=== PATIENT | male | born 1965 | race Caucasian/White ===

== ENCOUNTER 2024-06-20 16:40 | Observation (INO) ==
--- NOTE | 2024-06-20 16:50 | Emergency Department Note ---
Impression & Plan Syncope and collapse, Non-ST elevation IA (NSTEMI) ED Provider Note HISTORY OF PRESENT ILLNESS: Patient is a 58-year-old male presenting after recurrent syncopal episodes. Patient was at the [employer] [place] game when he reportedly passed out. Bystanders called 911. Patient reports he was feeling lightheaded prior to passing out. He states that he came to and he was surrounded by paramedics. The paramedics got him into the ambulance and states that he then had a another episode of passing out. Patient denies striking her head. He does have a history of cardiac stents and had a stent placed 1 month ago. He is on aspirin and Brilinta. He denies any nausea or vomiting. He denies any headache or changes in vision. On arrival to the ER, he reports feeling slightly anxious and having some substernal chest pressure. He states he did not even want to come but he decided to get checked out. He denies any DVT or PE history. ROS: as above PHYSICAL EXAM: Constitutional: Patient appears in no acute distress. HENT: Head: Normocephalic and atraumatic. Eyes: EOMI, PERRL Mouth/Throat: Mucous membranes moist. Neck: Trachea midline. Neck supple. Cardiovascular: RRR, No murmurs, rubs or gallops. Intact distal pulses. Pulmonary/Chest: No respiratory distress. Breath sounds clear and equal bilaterally. No wheezes or rales. Abdominal: Abdomen soft, no tenderness, rebound or guarding. Musculoskeletal: No edema, tenderness or deformity noted. Skin: Warm and dry. Abrasion to right knee. Psychiatric: Appropriate mood and affect for situation. Neurological: Alert and keenly responsive. CN II-XII grossly intact, moving all extremities equally and fully. MDM: - Vitals signs showed hypotension and tachycardia - History obtained via patient. History as above. - Chronic conditions affecting care: CAD (S/p PCI); HTN; HLD - Differential diagnoses include, but are not limited to: Acute coronary syndrome; pulmonary embolism; dissection; tension pneumothorax; esophageal rupture; pneumonia - Order placed for continuous cardiac monitoring. At this time, monitor showed rate of 81 bpm with normal sinus rhythm, per my interpretation. - External medical records reviewed. - EKG interpreted by myself showed normal sinus rhythm. Rate 92 bpm. QT 390. No acute ischemic changes. Noted to have an incomplete right bundle branch block. - Laboratory workup interpreted by myself showed normal WBC; normal PT/INR; stable electrolytes; elevated troponin (109.7); slightly elevated alcohol (50.7); normal TSH; elevated BNP (118) - CT head wo contrast today for acute intracranial pathology. - Patient had an episode of vomiting and bowel incontinence at CT scan. - CT chest with IV contrast showed moderate circumferential wall thickening of the mid to distal esophagus with trace mediastinal fluid favoring esophagitis. - CT abdomen/pelvis with IV contrast showed fluid-filled distended stomach. Noted to have diffuse small bowel wall thickening suggestive of nonspecific enteritis. - Repeat troponin elevated, but slightly trended down at 90.9. - Patient took 81 mg ASA today. Given 243 mg PO aspirin in ER. - Given 4 mg IV zofran for nausea. - Discussion was had with senior case manager about patient's case and need for admission - Hospitalist, Dr. Bryant, consulted for admission - Patient admitted to [facility] for further evaluation and management. ASSESSMENT AND PLAN: Diagnosis: Syncope and collapse; NSTEMI Plan: Admit Past Med/Surg History Problem List (Updated 06/20/24 @ 20:26 by Reva Zepeda MD) Non-ST elevation IA (NSTEMI) (Acute) Syncope and collapse (Acute) Social History Smoking Status: Never smoker Feels Safe at Home: Yes Home Meds Home Medications Medication Instructions Recorded Confirmed albuterol sulfate 90 mcg/actuation 2 inh inhalation Q4H PRN SOB 06/20/24 06/20/24 aerosol inhaler aspirin 81 mg tablet,delayed 81 mg PO DAILY 06/20/24 06/20/24 release febuxostat 80 mg tablet 80 mg PO DAILY 06/20/24 06/20/24 furosemide 20 mg tablet 20 mg PO DAILY 06/20/24 06/20/24 insulin aspart U-100 100 unit/mL 0 sliding scale dose subcut 06/20/24 06/20/24 (3 mL) subcutaneous pen (Novolog DIRECTED FlexPen U-100 Insulin aspart) insulin glargine 100 unit/mL (3 45 unit subcut DAILY 06/20/24 06/20/24 mL) subcutaneous pen (Lantus Solostar U-100 Insulin) losartan 25 mg tablet 25 mg PO DAILY 06/20/24 06/20/24 metformin 500 mg tablet 500 mg PO BID 06/20/24 06/20/24 metoprolol succinate 25 mg 25 mg PO DAILY 06/20/24 06/20/24 tablet,extended release 24 hr rosuvastatin 40 mg tablet 40 mg DAILY 06/20/24 06/20/24 ticagrelor 90 mg tablet (Brilinta) 90 mg PO Q12H 06/20/24 06/20/24 Results & Data (ED) Vital Signs Vital Signs - 24 hr 06/20/24 16:36 06/20/24 16:51 06/20/24 16:51 Temperature 37.4 C Temperature Source Oral Pulse Rate 92 H 89 Pulse Rate [Right Finger] 89 Pulse Rhythm Regular Pulse Rhythm [Right Finger] Regular Pulse Strength [Right Finger] Normal Respiratory Rate 20 18 16 Respiratory Effort / Characteristics Non-Labored Respiratory Depth Normal Respiratory Pattern Regular Blood Pressure 120/61 Blood Pressure [Right Arm] 120/61 Blood Pressure Mean 80 Blood Pressure Mean [Right Arm] 80 Blood Pressure Position [Right Arm] Lying Pulse Oximetry 98 99 99 Oxygen Delivery Method Room Air Room Air Sepsis Recent Fever Within 48 Hours No Sepsis New/Unexplained Change in Mental Status No Sepsis Action Taken by Nursing No Action Required 06/20/24 17:09 06/20/24 18:01 06/20/24 19:33 Temperature Temperature Source Pulse Rate 88 Pulse Rate [Right Finger] 77 81 Pulse Rhythm Pulse Rhythm [Right Finger] Regular Regular Pulse Strength [Right Finger] Normal Normal Respiratory Rate 17 Respiratory Effort / Characteristics Non-Labored Respiratory Depth Normal Respiratory Pattern Blood Pressure Blood Pressure [Right Arm] 97/60 L 116/77 Blood Pressure Mean Blood Pressure Mean [Right Arm] 72 90 Blood Pressure Position [Right Arm] Lying Lying Pulse Oximetry 100 99 Oxygen Delivery Method Room Air Room Air Sepsis Recent Fever Within 48 Hours Sepsis New/Unexplained Change in Mental Status Sepsis Action Taken by Nursing Laboratory Data 06/20/24 16:55 06/20/24 16:55 Lab Results 06/20/24 06/20/24 06/20/24 Range/Units 16:55 18:35 18:41 WBC 8.64 (4.8-10.8) K/ul RBC 4.01 L (4.70-6.10) M/uL Hgb 12.3 L (14.0-18.0) g/dl Hct 36.7 L (42.0-52.0) % MCV 91.5 (80.0-100.0) fL MCH 30.7 (25.0-34.0) pg MCHC 33.5 (32.0-36.0) g/dL RDW Std Deviation 40.9 (36.4-46.3) fL RDW Coeff of Jodie 12.3 (11.5-14.5) % Plt Count 375 (130-400) K/uL MPV 9.2 L (9.4-12.4) fL Immature Gran % (Auto) 0.3 % Neut % (Auto) 43.3 % Lymph % (Auto) 49.7 % Cherry % (Auto) 5.4 % Eos % (Auto) 1.0 % Baso % (Auto) 0.3 % Neut # (Auto) 3.73 (1.40-6.50) K/uL Lymph # (Auto) 4.29 H (1.20-3.40) K/uL Cherry # (Auto) 0.47 (0.11-0.59) K/uL Eos # (Auto) 0.09 (0.00-0.50) K/uL Baso # (Auto) 0.03 (0.00-0.20) K/uL Immature Gran # (Auto) 0.03 (0.01-0.20) K/uL PT 10.9 (9.0-12.0) Seconds INR 1.0 (0.9-1.1) Sodium 138 (136-145) mmol/L Potassium 3.6 (3.5-5.1) mmol/L Chloride 105 (98-107) mmol/L Carbon Dioxide 23 (21-32) mmol/L Anion Gap 10 (3-11) BUN 22 (6-23) mg/dl Creatinine 0.90 (0.6-1.4) mg/dl Est Cr Clr Drug Dosing 103.5 ml/min eGFR 100.24 BUN/Creatinine Ratio 24.4 H (10-20) Glucose 115 H (70-99(Fasting)) mg/dl Calcium 9.0 (8.6-10.3) mg/dl Magnesium 1.9 (1.7-2.4) mg/dl Total Bilirubin 0.8 (0.2-1.0) mg/dl AST 16 (13-39) U/L ALT 16 (7-52) U/L Alkaline Phosphatase 78 (34-104) U/L Total Creatine Kinase 77 (30-223) U/L Troponin I High Sens 109.7 H* 90.9 H* D (0-20) pg/ml B-Natriuretic Peptide 118 H (0-100) pg/ml Total Protein 6.9 (6.0-8.3) gm/dl Albumin 4.2 (3.4-5.0) gm/dl Globulin 2.7 (2.5-4.0) gm/dl Albumin/Globulin Ratio 1.6 (0.9-2) Lipase 22 (11-82) U/L TSH 3.323 (0.300-4.500) uIu/ml Ethyl Alcohol mg/dL 50.7 H (<10.0) mg/dl Administered Medications Potassium Chloride/Sodium Chloride (Normal Saline W/20 Meq Kcl) 20 meq in 1,000 mls @ 75 mls/hr IV .[id number] ONE Stop: 06/21/24 09:29 Last Admin: 06/20/24 20:22 Dose: 75 mls/hr Documented By: TRAY Discontinued Medications Aspirin (Aspirin Chew 324 Mg) 243 mg PO NOW STA Stop: 06/20/24 18:23 Last Admin: 06/20/24 18:33 Dose: 243 mg Documented By: TRAY Sodium Chloride (Nss) 1,000 mls @ 999 mls/hr IV .Q1H1M ONE Stop: 06/20/24 19:23 Last Infusion: 06/20/24 20:23 Dose: Infused Documented By: Admin: 06/20/24 18:35 Dose: 999 mls/hr Documented By: TRAY Ioversol (Optiray 320 100ml) 93 ml IV ONCE ONE Stop: 06/20/24 17:30 Last Admin: 06/20/24 17:30 Dose: 93 ml Documented By: MARLON Ondansetron HCl (Ondansetron Inj 2 Mg/Ml 2 Ml Vial) 4 mg IV NOW STA Stop: 06/20/24 18:24 Last Admin: 06/20/24 18:33 Dose: 4 mg Documented By: TRAY Imaging Data Radiologist's Impression: Head CT 06/20/24 16:47 CT OF THE HEAD WITHOUT CONTRAST CLINICAL HISTORY: Syncope. COMPARISON STUDY: No previous studies for comparison. TECHNIQUE: Helical axial images of the head were obtained without IV contrast. Automated exposure control was utilized for the study. A dose lowering technique was utilized adhering to the principles of ALARA. FINDINGS: No acute intracranial hemorrhage, midline shift or mass effect is present. The ventricular system is unremarkable. The basal cisterns are patent. No extra-axial collections are present. There are no findings to suggest acute dural sinus thrombosis or acute territorial infarct. No significant calvarial abnormalities are present. Visualized portions of the sinuses and mastoid air cells are clear. IMPRESSION: 1. No acute intracranial findings. 2. No calvarial fractures. ACT 112: Negative or not required by law. Electronically signed by: Chaz Ragland M.D. 06/20/2024 5:37 PM Abdomen/Pelvis CT 06/20/24 17:20 CT OF THE ABDOMEN AND PELVIS WITH CONTRAST CLINICAL HISTORY: Syncopal episode. Vomiting. COMPARISON STUDY: None. TECHNIQUE: Following IV administration of 93 mL of Optiray, axial images of the abdomen and pelvis were obtained from the lung bases to the proximal femurs. Images were reviewed in the axial, sagittal, and coronal planes. IV contrast was administered without complication. Automated exposure control was utilized for the study. A dose lowering technique was utilized adhering to the principles of ALARA. CT DOSE: 3702.26 mGy.cm FINDINGS: No pneumatosis, free air or portal venous gas is present. There is moderate circumferential wall thickening of the distal esophagus. The stomach is moderately distended and fluid-filled. Hypodense hepatic lesions represent cysts. There is no biliary or pancreatic ductal dilatation. Subtle hypodensity surrounding the pancreas is noted. This is also adjacent to the proximal duodenum and the superior mesenteric vein. The vessels are patent. No peripancreatic fluid collection is present. Superior mesenteric artery is unremarkable. Water attenuation bilateral renal lesions represent cysts. There is no hydronephrosis. There is no evidence for a bowel obstruction. The appendix is normal. There is mild wall thickening with subtle stranding/interloop fluid adjacent to the majority of the small bowel. There is trace ascites within the pelvis. No colonic wall thickening is present. There is no lymphadenopathy. Bladder wall thickening is accentuated by underdistention. No acute fractures within the lumbar spine, pelvis or hips are identified. IMPRESSION: 1. Normal appendix. No evidence for a bowel obstruction. 2. Fluid-filled distended stomach. This may simply represent gastroenteritis. However, gastric outlet obstruction/duodenal obstruction could have a similar imaging appearance. If persistent symptoms, GI consultation is recommended. 3. Subtle peripancreatic stranding/soft tissue which extends along the proximal duodenum and superior mesenteric vein. Although the appearance is not typical, acute pancreatitis cannot be excluded. Autoimmune pancreatitis is also within the differential. A follow-up CT in one month to ensure resolution and exclude the much less likely possibility of a neoplastic etiology is recommended. 4. Diffuse small bowel wall thickening with minimal adjacent stranding and fluid. This suggests a nonspecific enteritis which should be assessed on follow- up CT. 5. Circumferential distal esophageal wall thickening which may reflect esophagitis. ACT 112: Positive. There are findings on this exam that require communication between the performing entity and the patient following Patient Test Result Information Act ([place] Act 112) guidelines. Electronically signed by: Chaz Ragland M.D. 06/20/2024 6:[address] 06/20/24 17:20 CT OF THE CHEST WITH IV CONTRAST CLINICAL HISTORY: Syncope. COMPARISON STUDY: No previous studies for comparison. TECHNIQUE: Following IV administration of 93 mL of Optiray, helical axial images of the chest were obtained. Sagittal and coronal reconstructions were viewed as well as maximal intensity projections on an independent 3-D workstation. Automated exposure control was utilized for the study. A dose lowering technique was utilized adhering to the principles of ALARA. FINDINGS: No enlarged axillary, mediastinal or hilar lymph nodes are present. Size of the heart is at the upper limits of normal. There is moderate circumferential wall thickening of the mid to distal esophagus. There may be trace mediastinal fluid. There is no pneumomediastinum. No pneumothorax or pleural effusion is present. Multiple small calcified pulmonary nodules are benign. There are no suspicious pulmonary nodules. No consolidation is identified to suggest pneumonia. The stomach is distended and fluid-filled. There is a gallstone within the gallbladder. These findings are better depicted on the CT of the abdomen and pelvis which will be reported separately. No fractures within the bony thorax are identified. IMPRESSION: 1. No acute traumatic findings within the chest. 2. Moderate circumferential wall thickening of the mid to distal esophagus with trace mediastinal fluid. This is nonspecific but favors esophagitis. Distended, fluid-filled stomach better depicted on the CT of the abdomen and pelvis which will be reported separately. ACT 112: Negative or not required by law. Electronically signed by: Chaz Ragland M.D. 06/20/2024 5:46 PM Discharge Plan Visit Data Chief Complaint: Syncope Stated Complaint: SYNCOPE ED Provider: Reva Zepeda Discharge Problem: Syncope and collapse, Non-ST elevation IA (NSTEMI) Forms Stand Alone Forms: My [facility] Prescriptions Prescriptions: No Action metformin 500 mg tablet 500 mg PO BID aspirin 81 mg tablet,delayed release (DR/EC) 81 mg PO DAILY losartan 25 mg tablet 25 mg PO DAILY furosemide 20 mg tablet 20 mg PO DAILY metoprolol succinate 25 mg tablet extended release 24 hr 25 mg PO DAILY albuterol sulfate 90 mcg/actuation HFA aerosol inhaler 2 inh INHALATION Q4H PRN (Reason: SOB) insulin aspart U-100 [Novolog FlexPen U-100 Insulin] 100 unit/mL (3 mL) insulin pen 0 sliding scale dose SUBCUT DIRECTED Rx Instructions: INJECT 1-8 UNITS 3 TIMES A DAY BEFORE MEALS. INJECT EXTRA DOSE BASED ON RESULTS PER SCALE PROVIDED. rosuvastatin 40 mg tablet 40 mg DAILY insulin glargine [Lantus Solostar U-100 Insulin] 100 unit/mL (3 mL) insulin pen 45 unit SUBCUT DAILY febuxostat 80 mg tablet 80 mg PO DAILY Brilinta 90 mg tablet 90 mg PO Q12H Referrals Referrals: PCP,NO [Primary Care Provider] -
[2024-06-20 17:08] VITALS: TEMP 99.3
[2024-06-20 17:15] LABS: Basophils # (auto) 0.03 K/uL (0.00-0.20); Basophils % (auto) 0.3 %; Eosinophils # (auto) 0.09 K/uL (0.00-0.50); Hematocrit (blood only) 36.7 % (42.0-52.0); Hemoglobin 12.3 g/dl (14.0-18.0); Immature Granulocytes # (auto) 0.03 K/uL (0.01-0.20); Immature Granulocytes % (auto) 0.3 %; Lymphocytes # (auto) 4.29 K/uL (1.20-3.40); Lymphocytes % (auto) 49.7 %; Mean Corpuscular Hemoglobin 30.7 pg (25.0-34.0); Mean Corpuscular Hgb Conc 33.5 g/dL (32.0-36.0); Mean Corpuscular Volume 91.5 fL (80.0-100.0); Mean Platelet Volume 9.2 fL (9.4-12.4); Monocytes # (auto) 0.47 K/uL (0.11-0.59); Monocytes % (auto) 5.4 %; Neutrophils # (auto) 3.73 K/uL (1.40-6.50); Neutrophils % (auto) 43.3 %; Platelet Count 375 K/uL (130-400); RDW Coefficient of Variation 12.3 % (11.5-14.5); RDW Standard Deviation 40.9 fL (36.4-46.3); Red Blood Count 4.01 M/uL (4.70-6.10); White Blood Count 8.64 K/ul (4.8-10.8)
[2024-06-20] MEDS: OPTIRAY 320 100ml IV ONE (17:30)
--- NOTE | 2024-06-20 17:40 | CT Scan Report ---
CT OF THE HEAD WITHOUT CONTRAST CLINICAL HISTORY: Syncope. COMPARISON STUDY: No previous studies for comparison. TECHNIQUE: Helical axial images of the head were obtained without IV contrast. Automated exposure con trol was utilized for the study. A dose lowering technique was utilized adhering to the principles o f ALARA. FINDINGS: No acute intracranial hemorrhage, midline shift or mass effect is present. The ventricular system is unremarkable. The basal cisterns are patent. No extra-axial collections are present. There are no findings to suggest acute dural sinus thrombosis or acute territorial infarct. No significant calvarial abnormalities are present. Visualized portions of the sinuses and mastoid air cells are bharat ar. IMPRESSION: 1. No acute intracranial findings. 2. No calvarial fractures. ACT 112: Negative or not required by law. Electronically signed by: Chaz Ragland M.D. 06/20/2024 5:37 PM
--- NOTE | 2024-06-20 17:49 | CT Scan Report ---
CT OF THE CHEST WITH IV CONTRAST CLINICAL HISTORY: Syncope. COMPARISON STUDY: No previous studies for comparison. TECHNIQUE: Following IV administration of 93 mL of Optiray, helical axial images of the chest were o btained. Sagittal and coronal reconstructions were viewed as well as maximal intensity projections o n an independent 3-D workstation. Automated exposure control was utilized for the study. A dose low ering technique was utilized adhering to the principles of ALARA. FINDINGS: No enlarged axillary, mediastinal or hilar lymph nodes are present. Size of the heart is a t the upper limits of normal. There is moderate circumferential wall thickening of the mid to distal esophagus. There may be trace mediastinal fluid. There is no pneumomediastinum. No pneumothorax or pl eural effusion is present. Multiple small calcified pulmonary nodules are benign. There are no suspic ious pulmonary nodules. No consolidation is identified to suggest pneumonia. The stomach is distended and fluid-filled. There is a gallstone within the gallbladder. These findings are better depicted on the CT of the abdomen and pelvis which will be reported separately. No fractures within the bony tho rax are identified. IMPRESSION: 1. No acute traumatic findings within the chest. 2. Moderate circumferential wall thickening of the mid to distal esophagus with trace mediastinal flu id. This is nonspecific but favors esophagitis. Distended, fluid-filled stomach better depicted on th e CT of the abdomen and pelvis which will be reported separately. ACT 112: Negative or not required by law. Electronically signed by: Chaz Ragland M.D. 06/20/2024 5:46 PM
[2024-06-20 17:51] LABS: Prothrombin Time 10.9 Seconds (9.0-12.0)
[2024-06-20 17:55] LABS: Albumin Level 4.2 gm/dl (3.4-5.0); Bilirubin,Total 0.8 mg/dl (0.2-1.0); Magnesium 1.9 mg/dl (1.7-2.4); Potassium 3.6 mmol/L (3.5-5.1)
[2024-06-20 18:01] LABS: Albumin Globulin Ratio 1.6 (0.9-2); BUN Creatinine Ratio 24.4 (10-20); Creatinine Clr Calc Pharmacy 103.5 ml/min; Globulin 2.7 gm/dl (2.5-4.0); Total Protein 6.9 gm/dl (6.0-8.3)
--- NOTE | 2024-06-20 18:12 | CT Scan Report ---
CT OF THE ABDOMEN AND PELVIS WITH CONTRAST CLINICAL HISTORY: Syncopal episode. Vomiting. COMPARISON STUDY: None. TECHNIQUE: Following IV administration of 93 mL of Optiray, axial images of the abdomen and pelvis we re obtained from the lung bases to the proximal femurs. Images were reviewed in the axial, sagittal, and coronal planes. IV contrast was administered without complication. Automated exposure control wa s utilized for the study. A dose lowering technique was utilized adhering to the principles of ALARA . CT DOSE: 3702.26 mGy.cm FINDINGS: No pneumatosis, free air or portal venous gas is present. There is moderate circumferential wall thickening of the distal esophagus. The stomach is moderately distended and fluid-filled. Hypod ense hepatic lesions represent cysts. There is no biliary or pancreatic ductal dilatation. Subtle hy podensity surrounding the pancreas is noted. This is also adjacent to the proximal duodenum and the s uperior mesenteric vein. The vessels are patent. No peripancreatic fluid collection is present. Super ior mesenteric artery is unremarkable. Water attenuation bilateral renal lesions represent cysts. The re is no hydronephrosis. There is no evidence for a bowel obstruction. The appendix is normal. There is mild wall thickening with subtle stranding/interloop fluid adjacent to the majority of the small b owel. There is trace ascites within the pelvis. No colonic wall thickening is present. There is no ly mphadenopathy. Bladder wall thickening is accentuated by underdistention. No acute fractures within t he lumbar spine, pelvis or hips are identified. IMPRESSION: 1. Normal appendix. No evidence for a bowel obstruction. 2. Fluid-filled distended stomach. This may simply represent gastroenteritis. However, gastric outlet obstruction/duodenal obstruction could have a similar imaging appearance. If persistent symptoms, GI consultation is recommended. 3. Subtle peripancreatic stranding/soft tissue which extends along the proximal duodenum and superior mesenteric vein. Although the appearance is not typical, acute pancreatitis cannot be excluded. Auto immune pancreatitis is also within the differential. A follow-up CT in one month to ensure resolution and exclude the much less likely possibility of a neoplastic etiology is recommended. 4. Diffuse small bowel wall thickening with minimal adjacent stranding and fluid. This suggests a non specific enteritis which should be assessed on follow-up CT. 5. Circumferential distal esophageal wall thickening which may reflect esophagitis. ACT 112: Positive. There are findings on this exam that require communication between the performing entity and the patient following Patient Test Result Information Act ([place] Act 112) guidelines. Electronically signed by: Chaz Ragland M.D. 06/20/2024 6:10 PM
[2024-06-20 18:16] LABS: Thyroid Stimulating Hormone 3.323 uIu/ml (0.300-4.500)
[2024-06-20 18:23] LABS: Troponin I High Sensitivity 109.7 pg/ml (0-20)
[2024-06-20] MEDS: ONDANSETRON INJ 2 MG/ML 2 ML VIAL IV STA (18:33)
[2024-06-20] MEDS: ASPIRIN CHEW 324 MG PO STA (18:33)
[2024-06-20] MEDS: SODIUM CHLORIDE 0.9% 1,000 ML IV ONE (18:35)
[2024-06-20 19:21] LABS: Troponin I High Sensitivity 90.9 pg/ml (0-20)
[2024-06-20] MEDS: NSS + 20MEQ KCL 20 MEQ/1,000 ML BAG IV ONE (20:22)
[2024-06-20 21:05] LABS: Appearance Urine Clear (Clear); Bilirubin Urine Negative (Negative); Blood Urine Negative (Negative); Color Urine Yellow; Glucose Urine UA Negative (Negative); Ketones Urine Negative (Negative); Leukocyte Esterase Urine Negative (Negative); Nitrite Urine Negative (Negative); Protein Urine Negative (Negative); Specific Gravity Urine 1.041 (1.000-1.030); Urobilinogen Urine Negative (Negative)
[2024-06-20 22:16] LABS: Hematocrit (blood only) 35.1 % (42.0-52.0); Hemoglobin 11.6 g/dl (14.0-18.0); Reticulocyte % 3.53 % (0.50-2.00); Reticulocytes # 0.14 10^6/uL (0.020-0.100)
[2024-06-20 22:29] LABS: Ferritin 165.6 ng/ml (8-388)
[2024-06-20 22:31] LABS: Folate (Folic Acid),Ser orPlas 18.15 ng/ml (>5.38)
[2024-06-20] MEDS ORDERED: GLUCOSE 10 TAB/TUBE PO PRN (23:28)
[2024-06-20] MEDS ORDERED: LORazepam 0.5 MG TAB PO PRN (23:28)
[2024-06-20] MEDS ORDERED: CARBOHYDRATES FOR HYPOGLYCEMIA PO PRN (23:28)
[2024-06-20] MEDS ORDERED: DEXTROSE 50% 50 ML SYRINGE IV PRN (23:28)
[2024-06-20] MEDS ORDERED: ACETAMINOPHEN 325 MG TAB PO PRN (23:28)
[2024-06-20] MEDS ORDERED: GLUCAGON FOR INJ 1 MG VIAL SQ PRN (23:28)
[2024-06-20] MEDS ORDERED: GLUCOSE 40% GEL 15 GM TUBE PO PRN (23:28)
[2024-06-20] MEDS ORDERED: oxyCODONE HCL IR 5 MG TAB (IMMEDIATE RELEASE) PO PRN (23:28)
[2024-06-20] MEDS ORDERED: PROMETHAZINE 6.25 MG/50.25 ML BAG IV PRN (23:28)
--- NOTE | 2024-06-20 23:54 | History & Physical Report ---
Date of Service June 20, 2024 Assessment & Plan (1) Syncope: Plan: Likely secondary to orthostasis given hypotension documented at the ER Rule out arrhythmia/obstructive cardiac pathology recent CAD status post recent stent (05/2024, [facility], [place], [place]; hx heart block as per patient account New onset anemia No previous diagnosis as per patient Bleeding right knee wound only source for now Patient denies overt GI or bleed complaints. hyperlipidemia, on statin Rx recent diagnosis DM2 insulin requiring, during last month's admission Incidental finding of subtle pancreatic abnormality on CT imaging, patient without abdominal complaints. OBS Medical telemetry IVF Hold losartan and home diuretic for now until BP stable TTE re: recurrent syncope Anemia workup, patient currently refusing to sign consent for prospective blood transfusion Hold dual antiplatelet Rx for now given bleeding right knee wound contributing to new onset anemia, important to resume once H&H stable given recent stent Basal bolus insulin, ISS BG goal 1 10-1 40, carb count coverage, update hemoglobin A1c Provide patient with CD of CT images on discharge, outpatient follow-up with GI specialist from [place], [place] regarding pancreatic abnormality on CT. DVT prophylaxis. SCDs RLE traumatic right knee wound Full code Text document was generated using [employer] voice recognition software. It may contain grammatical or spelling errors. Kindly contact undersigned for clarification of any documentation item in question. History of Present Illness Chief Complaint: Recurrent syncope Primary Care Provider: PCP: Dr. Parker Ramirez of [place], [place] Resident Inspector: Dr. Dayne Miller of [place], [place] History obtained from patient, family, and records. Medical history significant for CAD status post recent stent (05/2024, [facility], [place], [place]), transient heart block as per patient, hypertension, hyperlipidemia, recent diagnosis DM2 insulin requiring, gout. Patient is a resident of [place], [place] who is in town for the weekend football game. Recent confinement [place], [place] last month for NSTEMI. Patient presented with food poisoning symptoms after leaving [facility] to return home to [facility]. Had to stop at [facility] in [place], [place] due to illness. Abnormal heart enzyme, heart block found during admission although patient never had chest pain/SOB symptoms. Subsequent PCI and stent placement. Patient also newly diagnosed to be diabetic during confinement. Hemoglobin A1c was around 15 as per patient. Patient had 2 recurrent syncopal events at the [facility] today. Remembers feeling lightheaded prior to the events. Denies headache, chest pain, SOB, abdominal pain, black/bloody stools, hematuria. No witnessed seizures or incontinence. Denies previous episodes at home. Bleeding abrasion on right knee from fall. No unusual knee pain complaints. Lowest SBP of 90s documented at the ER. Medical History as above Surgical History : Knee surgery Family History : Prostate cancer Personal/Social history :non-smoker, occasional EtOH intake, life insurance sales Allergies Allergy/AdvReac Type Severity Reaction Status Date / Time No Known Allergies Allergy Verified 06/21/24 00:39 Home Medications Medication Instructions Recorded Confirmed Type albuterol sulfate 90 mcg/actuation 2 inh inhalation Q4H PRN SOB 06/20/24 06/20/24 History aerosol inhaler aspirin 81 mg tablet,delayed 81 mg PO DAILY 06/20/24 06/20/24 History release febuxostat 80 mg tablet 80 mg PO DAILY 06/20/24 06/20/24 History furosemide 20 mg tablet 20 mg PO DAILY 06/20/24 06/20/24 History insulin aspart U-100 100 unit/mL 0 sliding scale dose subcut 06/20/24 06/20/24 History (3 mL) subcutaneous pen (Novolog DIRECTED FlexPen U-100 Insulin aspart) insulin glargine 100 unit/mL (3 45 unit subcut DAILY 06/20/24 06/20/24 History mL) subcutaneous pen (Lantus Solostar U-100 Insulin) losartan 25 mg tablet 25 mg PO DAILY 06/20/24 06/20/24 History metformin 500 mg tablet 500 mg PO BID 06/20/24 06/20/24 History metoprolol succinate 25 mg 25 mg PO DAILY 06/20/24 06/20/24 History tablet,extended release 24 hr rosuvastatin 40 mg tablet 40 mg DAILY 06/20/24 06/20/24 History ticagrelor 90 mg tablet (Brilinta) 90 mg PO Q12H 06/20/24 06/20/24 History Past Med/Surg History Problem List (Updated 06/21/24 @ 06:03 by Farooq Bryant MD) Syncope Non-ST elevation ID (NSTEMI) (Acute) Syncope and collapse (Acute) Social History Smoking Status: Light tobacco smoker Tobacco Type: Cigars Second Hand Exposure: No; Do You Dip or Chew Tobacco: No; Tobacco Cessation Education Requested by Patient: No Hx Alcohol Use: Yes Hx Substance Use: No Preferred Language: Estonian Communication Ability: Effective Hair Boiler Operator Required: No Beliefs That Will Affect Care: None Current Living Situation: Significant Other Other Information That Helps Us Care for You: No Feels Safe at Home: Yes Safety Concerns: Feels Safe At This Time Assistive Devices: Glasses Review of Systems Review of Systems: As per HPI, all other systems reviewed and negative Physical Exam Physical Exam: GENERAL: Comfortable, obese, slightly anxious, pleasant, no respiratory distress SKIN: Normal color, warm HEENT: [place] palpebral conjunctivae, no ptosis, dry buccal mucosa NECK : Supple, no tenderness CHEST : CTA, no tenderness HEART : RRR, no obvious murmurs ABDOMEN: Some distention, nontender RECTAL : Refused EXTREMITIES : Dressing over right knee, no LE swelling/tenderness NEUROLOGIC : Coherent, no facial asymmetry, no other gross focality Results & Data Results & Data Vital Signs (Past 12 Hours) Vital Signs Temp Pulse Pulse Resp BP BP Pulse Ox 06/20/24 22:12 84 18 99/66 L 97 06/20/24 21:04 89 06/20/24 19:33 81 116/77 99 06/20/24 18:01 77 17 97/60 L 100 06/20/24 17:09 88 06/20/24 16:51 89 16 99 06/20/24 16:51 89 18 120/61 99 06/20/24 16:36 37.4 C 92 H 20 120/61 98 O2 Del Method 06/20/24 22:12 Room Air 06/20/24 21:04 06/20/24 19:33 Room Air 06/20/24 18:01 Room Air 06/20/24 17:09 06/20/24 16:51 Room Air 06/20/24 16:51 Room Air 06/20/24 16:36 Laboratory Results Laboratory Results WBC 8.64 K/ul (4.8-10.8) 06/20/24 16:55 RBC 4.01 M/uL (4.70-6.10) L 06/20/24 16:55 Hgb 11.6 g/dl (14.0-18.0) L 06/20/24 21:45 Hct 35.1 % (42.0-52.0) L 06/20/24 21:45 MCV 91.5 fL (80.0-100.0) 06/20/24 16:55 MCH 30.7 pg (25.0-34.0) 06/20/24 16:55 MCHC 33.5 g/dL (32.0-36.0) 06/20/24 16:55 RDW Std Deviation 40.9 fL (36.4-46.3) 06/20/24 16:55 RDW Coeff of Jodie 12.3 % (11.5-14.5) 06/20/24 16:55 Plt Count 375 K/uL (130-400) 06/20/24 16:55 MPV 9.2 fL (9.4-12.4) L 06/20/24 16:55 Immature Gran % (Auto) 0.3 % 06/20/24 16:55 Neut % (Auto) 43.3 % 06/20/24 16:55 Lymph % (Auto) 49.7 % 06/20/24 16:55 [place] % (Auto) 5.4 % 06/20/24 16:55 Eos % (Auto) 1.0 % 06/20/24 16:55 Baso % (Auto) 0.3 % 06/20/24 16:55 Reticulocyte % (Auto) 3.53 % (0.50-2.00) H 06/20/24 21:45 Neut # (Auto) 3.73 K/uL (1.40-6.50) 06/20/24 16:55 Lymph # (Auto) 4.29 K/uL (1.20-3.40) H 06/20/24 16:55 [place] # (Auto) 0.47 K/uL (0.11-0.59) 06/20/24 16:55 Eos # (Auto) 0.09 K/uL (0.00-0.50) 06/20/24 16:55 Baso # (Auto) 0.03 K/uL (0.00-0.20) 06/20/24 16:55 Reticulocyte # 0.140 10^6/uL (0.020-0.100) H 06/20/24 21:45 Immature Gran # (Auto) 0.03 K/uL (0.01-0.20) 06/20/24 16:55 PT 10.9 Seconds (9.0-12.0) 06/20/24 16:55 INR 1.0 (0.9-1.1) 06/20/24 16:55 Sodium 138 mmol/L (136-145) 06/20/24 16:55 Potassium 3.6 mmol/L (3.5-5.1) 06/20/24 16:55 Chloride 105 mmol/L (98-107) 06/20/24 16:55 Carbon Dioxide 23 mmol/L (21-32) 06/20/24 16:55 Anion Gap 10 (3-11) 06/20/24 16:55 BUN 22 mg/dl (6-23) 06/20/24 16:55 Creatinine 0.90 mg/dl (0.6-1.4) 06/20/24 16:55 Est Cr Clr Drug Dosing 103.5 ml/min 06/20/24 16:55 eGFR 100.24 06/20/24 16:55 BUN/Creatinine Ratio 24.4 (10-20) H 06/20/24 16:55 Glucose 115 mg/dl (70-99(Fasting)) H 06/20/24 16:55 Lactate 0.8 mmol/L (0.4-2.0) 06/20/24 21:45 Calcium 9.0 mg/dl (8.6-10.3) 06/20/24 16:55 Magnesium 1.9 mg/dl (1.7-2.4) 06/20/24 16:55 Iron 53 mcg/dl (35-175) 06/20/24 18:41 Transferrin 236 mg/dl (200-360) 06/20/24 18:41 Ferritin 165.6 ng/ml (8-388) 06/20/24 18:41 Total Bilirubin 0.8 mg/dl (0.2-1.0) 06/20/24 16:55 AST 16 U/L (13-39) 06/20/24 16:55 ALT 16 U/L (7-52) 06/20/24 16:55 Alkaline Phosphatase 78 U/L (34-104) 06/20/24 16:55 Total Creatine Kinase 77 U/L (30-223) 06/20/24 16:55 Troponin I High Sens 90.9 pg/ml (0-20) H* D 06/20/24 18:41 B-Natriuretic Peptide 118 pg/ml (0-100) H 06/20/24 18:35 Total Protein 6.9 gm/dl (6.0-8.3) 06/20/24 16:55 Albumin 4.2 gm/dl (3.4-5.0) 06/20/24 16:55 Globulin 2.7 gm/dl (2.5-4.0) 06/20/24 16:55 Albumin/Globulin Ratio 1.6 (0.9-2) 06/20/24 16:55 Lipase 22 U/L (11-82) 06/20/24 16:55 Vitamin B12 292 pg/ml (180-914) 06/20/24 16:55 Folate 18.15 ng/ml (>5.38) 06/20/24 16:55 TSH 3.323 uIu/ml (0.300-4.500) 06/20/24 16:55 Urine Color Yellow 06/20/24 20:44 Urine Appearance Clear (Clear) 06/20/24 20:44 Urine pH 5.0 (4.5-7.5) 06/20/24 20:44 Ur Specific [place] 1.041 (1.000-1.030) H 06/20/24 20:44 Urine Protein Negative (Negative) 06/20/24 20:44 Urine Glucose (UA) Negative (Negative) 06/20/24 20:44 Urine Ketones Negative (Negative) 06/20/24 20:44 Urine Blood Negative (Negative) 06/20/24 20:44 Urine Nitrite Negative (Negative) 06/20/24 20:44 Urine Bilirubin Negative (Negative) 06/20/24 20:44 Urine Urobilinogen Negative (Negative) 06/20/24 20:44 Ur Leukocyte Esterase Negative (Negative) 06/20/24 20:44 Ethyl Alcohol mg/dL 50.7 mg/dl (<10.0) H 06/20/24 16:55 Blood Type O Positive 06/20/24 21:45 Antibody Screen NEGATIVE 06/20/24 21:[address] 06/20/24 16:47 CT OF THE HEAD WITHOUT CONTRAST CLINICAL HISTORY: Syncope. COMPARISON STUDY: No previous studies for comparison. TECHNIQUE: Helical axial images of the head were obtained without IV contrast. Automated exposure control was utilized for the study. A dose lowering technique was utilized adhering to the principles of ALARA. FINDINGS: No acute intracranial hemorrhage, midline shift or mass effect is present. The ventricular system is unremarkable. The basal cisterns are patent. No extra-axial collections are present. There are no findings to suggest acute d ural sinus thrombosis or acute territorial infarct. No significant calvarial abnormalities are present. Visualized portions of the sinuses and mastoid air cells are clear. IMPRESSION: 1. No acute intracranial findings. 2. No calvarial fractures. ACT 112: Negative or not required by law. Electronically signed by: Chaz Ragland M.D. 06/20/2024 5:37 PM Abdomen/Pelvis CT 06/20/24 17:20 CT OF THE ABDOMEN AND PELVIS WITH CONTRAST CLINICAL HISTORY: Syncopal episode. Vomiting. COMPARISON STUDY: None. TECHNIQUE: Following IV administration of 93 mL of Optiray, axial images of the abdomen and pelvis were obtained from the lung bases to the proximal femurs. Images were reviewed in the axial, sagittal, and coronal planes. IV contrast was administered without complication. Automated exposure control was utilized for the study. A dose lowering technique was utilized adhering to the principles of ALARA. CT DOSE: 3702.26 mGy.cm FINDINGS: No pneumatosis, free air or portal venous gas is present. There is moderate circumferential wall thickening of the distal esophagus. The stomach is moderately distended and fluid-filled. Hypodense hepatic lesions represent cysts. There is no biliary or pancreatic ductal dilatation. Subtle hypodensity surrounding the pancreas is noted. This is also adjacent to the proximal duodenum and the superior mesenteric vein. The vessels are patent. No peripancreatic fluid collection is present. Superior mesenteric artery is unremarkable. Water attenuation bilateral renal lesions represent cysts. There is no hydronephrosis. There is no evidence for a bowel obstruction. The appendix is normal. There is mild wall thickening with subtle stranding/interloop fluid adjacent to the majority of the small bowel. There is trace ascites within the pelvis. No colonic wall thickening is present. There is no lymphadenopathy. Bladder wall thickening is accentuated by underdistention. No acute fractures wi thin the lumbar spine, pelvis or hips are identified. IMPRESSION: 1. Normal appendix. No evidence for a bowel obstruction. 2. Fluid-filled distended stomach. This may simply represent gastroenteritis. However, gastric outlet obstruction/duodenal obstruction could have a similar imaging appearance. If persistent symptoms, GI consultation is recommended. 3. Subtle peripancreatic stranding/soft tissue which extends along the proximal duodenum and superior mesenteric vein. Although the appearance is not typical, acute pancreatitis cannot be excluded. Autoimmune pancreatitis is also within the differential. A follow-up CT in one month to ensure resolution and exclude the much less likely possibility of a neoplastic etiology is recommended. 4. Diffuse small bowel wall thickening with minimal adjacent stranding and fluid. This suggests a nonspecific enteritis which should be assessed on follow- up CT. 5. Circumferential distal esophageal wall thickening which may reflect esophagi tis. ACT 112: Positive. There are findings on this exam that require communication between the performing entity and the patient following Patient Test Result Information Act ([place] Act 112) guidelines. Electronically signed by: Chaz Ragland M.D. 06/20/2024 6:[address] 06/20/24 17:20 CT OF THE CHEST WITH IV CONTRAST CLINICAL HISTORY: Syncope. COMPARISON STUDY: No previous studies for comparison. TECHNIQUE: Following IV administration of 93 mL of Optiray, helical axial images of the chest were obtained. Sagittal and coronal reconstructions were viewed as well as maximal intensity projections on an independent 3-D workstation. Automated exposure control was utilized for the study. A dose lowering technique was utilized adhering to the principles of ALARA. FINDINGS: No enlarged axillary, mediastinal or hilar lymph nodes are present. Size of the heart is at the upper limits of normal. There is moderate circumferential wall thickening of the mid to distal esophagus. There may be trace mediastinal fluid. There is no pneumomediastinum. No pneumothorax or pleural effusion is present. Multiple small calcified pulmonary nodules are benign. There are no suspicious pulmonary nodules. No consolidation is identified to suggest pneumonia. The stomach is distended and fluid-filled. There is a gallstone within the gallbladder. These findings are better depicted on the CT of the abdomen and pelvis which will be reported separately. No fractures within the bony thorax are identified. IMPRESSION: 1. No acute traumatic findings within the chest. 2. Moderate circumferential wall thickening of the mid to distal esophagus with trace mediastinal fluid. This is nonspecific but favors esophagitis. Distended, fluid-filled stomach better depicted on the CT of the abdomen and pelvis which will be reported separately. ACT 112: Negative or not required by law. Electronically signed by: Chaz Ragland M.D. 06/20/2024 5:46 PM Diagnostic Findings EKG as per my interpretation : Rate 90, NSR, LAD, LAFB, incomplete RBBB, T wave abnormalities septal leads
[2024-06-21] MEDS: INSULIN ASPART PER UNIT CHARGE SC SCH (00:32)
[2024-06-21] MEDS: Patient's ALLERGY Info needs ENTERED STA (00:43)
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
--- OUTSIDE RECORDS SUMMARY | 2024-06-21 02:01 | External Medical Summary | Summary of Care ---
Author Name Unknown Organization [facility] Address [address] [place] [address] Care Team Providers Care Calender Wind Up Helper Name Role Phone Parker Ramirez DO Primary Care Provider [phone] Encounter Details Date Type Department Care Team (Late st Contact Info) Description 04/08/2024 5:15 PM EDT Lab [facility] [address] [place] [phone] Special screening for malignant neoplasm of prostate (Primary Dx) Social History Tobacco Use Types Packs/Day Years Used Date Smoking Tobacco: Never Assessed Sex and Gender Information Value Date Recorded Sex Assigned at Not on file Gender Identity Not on file Sexual Orientation Not on file documented as of this encounter Plan of Treatment Upcoming Encounters Date Type Department Care Team (Late st Contact Info) Description 06/15/2024 9:40 AM EDT Office Visit [facility] [place] [facility] Rheumatology [address] [place] [phone] Parker Dave MD [address] [place] [phone] 07/14/2024 8:15 AM EDT Office Visit [facility] [place] [facility] Urology [address] [place] [phone] Jatin Telles MD [address] [place] [address] Health Maintenance Due Date Last Done Comments CT Colonography 1967 Cologuard 1967 Colonoscopy 1967 Colorectal Cancer Screening 1967 DEPRESSION SCREENING 1967 FIT/FOBT 1967 HEPATITIS C SCREENING 1967 SDOH SCREENING 1967 Sigmoidoscopy 1967 HIV SCREENING 1982 DTaP/Tdap/Td Vaccines (1 - Tdap) 1986 ZOSTER IMMUNIZATION SERIES (1 of 2) 2017 INFLUENZA VACCINE (#1) 2024 HEPATITIS A IMMUNIZATION SERIES Aged Out No longer eligible based on patient's age to complete this topic HPV IMMUNIZATION SERIES Aged Out No l onger eligible based on patient's age to complete this topic MENINGOCOCCAL VACCINE IMM Aged Out No longer eligible based on patient's age to complete this topic PNEUMOCOCCAL 0-64 YRS Aged Out No tonya martina eligible based on patient's age to complete this topic RSV IMMUNIZATION <20 MONTHS Aged Out No longer eligible based on patient's age to complete this topic documented as of this encounter Procedures Procedure Name Priority Date/Time Associated Diagnosis Comments PSA, TOTAL (INITIAL SCREEN) Routine 04/08/2024 5:33 PM EDT Special screening for malignant neoplasm of prostate documented in this encounter Results * PSA, TOTAL (INITIAL SCREEN) (04/08/2024 5:33 PM EDT) Total PSA 0.65 <=3.50 ng/mL 04/08/2024 7:55 PM EDT [facility] Comment: This test was performed using the Leeann Porfirio Electrochemiluminescence Immunoassay method. Values obtained with different assay methods or kits cannot be used interchangeably. Results cannot be interpreted as absolute evidence of the presence of absence of malignant disease. For diagnostic purposes, the results should always be assessed in conjunction with the patient's medical history, clinical examination and other findings. The following data were established with the Elecsys total PSA assay on the Elecsys 2010 analyzer and can be transferred to the porfirio e 801 analyzer due to technical equivalence. Blood BLOOD SPECIMEN / Unknown Venipuncture / Unknown 04/08/2024 5:33 PM EDT 04/08/2024 5:53 PM EDT Jatin Telles MD [facility] [address] [place] [id number] documented in this encounter Visit Diagnoses Diagnosis Special screening for malignant neoplasm of prostate- Primary documented in this encounter Care Teams Calender Wind Up Helper Relationship Specialty Start Date End Date Parker Ramirez DO [phone] [place] [address] PCP - General FAMILY PRACTICE 04/08/24 documented as of this encounter
--- OUTSIDE RECORDS SUMMARY | 2024-06-21 02:01 | External Medical Summary | Summary of Care ---
Author Name Unknown Organization [facility] Address [address] [place] [address] Care Team Providers Care Activities Director Scouting Name Role Phone Parker Ramirez DO Primary Care Provider [phone] Reason for Referral * Refer to Department Only (Routine) - Authorized Specialty Diagnoses / Procedures Referred By Contac t Referred To Contact Cardiac Rehabilitation Diagnoses Non-ST elevation (NSTEMI) myocardial infarction (HCC) Dayne Miller MD [address] [place] [address] [facility] [address] [place] [address] Referral ID Status Reason Start Date Expiration Date V isits Requested Visits Authorized [id number] Authorized 06/01/2024 06/01/2025 99 99 Question Answer Specify Diagnosis: Non-ST elevation (NSTEMI) myocardial infarction (HCC) [[id number]] Comments Reason For Referral: S/P 05/20/2024 LCX stent Patient Background: as above. ECHO 05/19/2024> LVEF 50-55%, normal wall motion, NO sig valve disease Patient Background: Jatin Love is a 58-y.o. male. Evaluate and Treat: Follow Protocols for Cardiac Rehab Patients and Adverse Effects, Policy [id number]. To view the entire cardiac rehab exercise protocol click on the "Protocols for Cardiac Rehab Patients and Adverse Effects" located next to the reference link. Diabetic Patients: Diabetic Patients on oral diabetes medications, a Finger Stick Blood Glucose (FSBG) will be obtained pre and post exercise via a glucometer for the first 6 visits and then only as needed (if symptomatic or with volatile or inconsistent blood glucose). For insulin dependent diabetic patients, FSBG will be performed before and after every visit for patients. Patients that are tested must have a pre-exercise blood glucose level of at least 100 mg/dl to exercise and a post-exercise blood glucose level of at least > 80 mg/dL to be safely discharged. Signs &Symptoms of Hypoglycemia: 1. Obtain a finger stick blood glucose level. 2. If blood glucose results are < 100 mg/dL pre-exercise or < 80 mg/dL post exercise, or if patient remains symptomatic, give 15 grams of carbohydrate (CHO) orally such as 4 oz Parker juice, ester crackers, skim milk or sugar packets. 3. Recheck blood glucose in 15 minutes or sooner if signs and symptoms not improving. If blood glucose isn't > 100 mg/dL pre-exercise or > 80 mg/dL post exercise repeat 15 g CHO and recheck blood glucose in 15 minutes. 4.Once blood glucose is > 100 mg/dL pre-exercise or > 80 mg/dL post exercise and asymptomatic, patient may be discharged home. 5. If patient is uncooperative or unconscious due to hypoglycemia, initiate Emergency Response Team (ERT). Care is transferred to ERT and the responding physician will direct patient's care. 6. If blood glucose < 50 mg/dL, recheck to validate blood glucose value, and patient is symptomatic, call Emergency Response Team. If patient is awake and able to tolerate po may give patient 15 grams of carbohydrate listed above #2. If patient is asymptomatic, transport to emergency department for blood glucose lab confirmation. At [facility] will repeat blood glucose if < 50 mg/dL and if second blood glucose is < 50 mg/dL the medical claims manager will be notified and further direct patient's care. Signs and Symptoms of Hyperglycemia: If blood glucose result is > 500 mg/dL and patient is symptomatic, initiate Emergency Response Team. If patient is asymptomatic, transport to emergency department for blood glucose lab confirmation. [facility] would contact [employer] to further direct patient care. For Chest Pain: If no relief with one to three minutes of rest, RN is to administer nitroglycerin (NTG) 0.4 mg sublingual (SL). Repeat NTG 0.4 mg SL every 5 minutes for unrelieved anginal symptoms to a maximum of 3 doses if systolic blood pressure is > 100 mmHg. If systolic blood pressure < 100 mmHg do not administer NTG. If pain is not relieved and oxygen saturation < 90%, start on 4 liters of oxygen per minute to maintain oxygen saturation > 90%. For Premature Ventricular Contractions: (PVC'S) If patient's condition deteriorates and becomes symptomatic, check pulse, BP, oxygen saturation. If oxygen saturation < 90% start on 4 liters of oxygen per minute to maintain oxygen saturation > 90%. Acute Dyspnea: If Oxygen saturation < 90%, start on 4 liters of oxygen per minute via nasal cannula to maintain oxygen saturation > 90%. For patients who are exercising and have an oxygen saturation < 90% due to Chronic Obstructive Pulmonary Disease (COPD) or other obstructive lung diseases, administer 2 liters of oxygen via nasal cannula. Titrate as needed 1 liter every 5 minutes up to 4 liters. If patient is prescribed a metered dose inhaler and is due for a dose, patient may self- administer as prescribed. Symptomatic Bradycardia or New Wide or Narrow Complex Tachycardia: If oxgen saturation < 90%, start on 4 liters of oxygen per minute via nasal cannula to maintain oxygen saturation > 90%. All Phase II Cardiac Rehab participants may have a six-minute walk test as part of the Initial Evaluation to create the Individualized Treatment Plan. Reason for Visit * Reason Comments Hospital F/U Edema Encounter Details Date Type Department Care Team (Late st Contact Info) Description 06/01/2024 11:40 AM EDT Office Visit [facility] [place] [facility] Cardiology [address] [place] [address] Dayne Miller MD [address] [place] [address] [place] [address] Coronary artery disease involving [place] coronary artery of [place] heart without angina pectoris (Primary Dx); Status post insertion of drug eluting coronary artery stent; Type 1 diabetes mellitus with other specified complication (HCC); Dyslipidemia; Encounter for current fpc use of antiplatelet drug; Medication management; Bilateral leg edema; Non-ST elevation (NSTEMI) myocardial infarction (HCC) Allergies No known active allergiesdocumented as of this encounter (statuses as of 06/01/2024) Medications Medication Sig Dispensed Refills Start Date [...] MG Oral Tab 80 mg. 06/25/2023 Active NOVOLOG FLEXPEN 100 UNIT/ML Subcutaneous Solution Pen-injector Inject 1-8 Units beneath the skin. 05/23/2024 Active LANTUS SOLOSTAR 100 UNIT/ML Subcutaneous Solution Pen-injector Inject 45 Units beneath the skin DAILY. 05/23/2024 Active losartan (COZAAR) 25 MG Oral Tab [...] by mouth DAILY. 30 Each 06/01/2024 Active documented as of this encounter (statuses as of 06/01/2024) Active Problems Problem Noted Date Diagnosed Date Coronary artery disease invo lving [place] coronary artery of [place] heart without angina pectoris 06/01/2024 Type 1 diabetes mellitus with other specified co mplication 06/01/2024 Dyslipidemia 06/01/2024 Encounter for current termite control representative use of antiplate let drug 06/01/2024 Medication management 06/01/2024 Status post insertion of drug eluting coronary a rtery stent 06/01/2024 documented as of this encounter (statuses as of 06/01/2024) Social History Tobacco Use Types Packs/Day Years Used Date Smoking Tobacco: Never Assessed Emotional/Physical Abuse Answer Date Re corded Currently, [...] on file documented as of this encounter Last Filed Vital Signs Vital Sign Reading Time Taken Comments Blood Pressure 134/86 06/01/2024 11:54 AM EDT Pulse 60 06/01/2024 11:54 AM EDT Temperature - - Respiratory Rate - - Oxygen Saturation - - Inhaled Oxygen Concentration - - Weight 96.1 kg (211 lb 13.8 oz) 024 11:54 AM EDT Height - - Body Mass Index - - documented in this encounter Patient Instructions * Patient Instructions* Dayne Miller MD - 06/01/2024 11:40 AM EDT Refer to [facility] cardiac rehabilitation Furosemide 20mg once daily as needed for leg swelling. Other medications remain the same. Office in 3 months documented in this encounter Progress Notes * Dayne Miller MD - 06/01/2024 11:40 AM EDT CARDIOLOGY OFFICE CONSULT [facility] Card[facility] [address] [place] [address] [place] [address] Name: Jatin Love : 1965 Age: 58-y.o. REFERRING PHYSICIAN: Self-referred No address on file DATE OF CONSULT: 06/01/2024 Reason for Consult: Chief Complaint Patient presents with Hospital F/U Edema History of Present Illness Jatin Love is a 58-y.o. male comes the office for follow-up to recent ACS with coronary PCI/stent to left circumflex (final Report is not available with records from [facility]). At that admission was diagnosed with presumed type 1 diabetes mellitus (? Type 1.5). On 05/18/2024, he was at the [employer] tennis tournament with his girlfriend. He states he had some food poisoning. He ate what he thinks was undercooked hamburger. He had vomiting and diarrhea and felt really poorly. It was also a particularly hot day. He and his girlfriend decided to [facility]. While driving back, he became somewhat disoriented. His girlfriend convincedto go to the nearest emergency department. He was admitted to hospital with presumed diabetic ketoacidosis. He was also dehydrated with JOSUE. His initial creatinine was 1.70. He was admitted to their ICU was given IV fluids with IV insulin. Renal function normalized. He is a little bit focused on requiring potassium replacement initially. I explained that with IV insulin, there is a metabolic shift and potassium will be shifted into tissues from the bloodstream and thus at times potassium and magnesium can become low as a consequence of this. He was medically stabilized. Ultrasensitive troponin I determinations were elevated. Initial was 194 and peaked at a little over 17,000. Cardiology consultation was obtained. After he was medically stabilized he underwent heart catheterization. The patient and his girlfriend recall them being told he had a "95% blockage". The discharge summary states left circumflex stent but I have been through all the records through care everywhere in [facility] and I cannot find the actual catheter report. He does recall that they had trouble getting up to the left wrist and ended up going through his groin. At presentation, echocardiogram from 05/19/2024 reported somewhat limited imaging but normal segmental wall motion and low normal ejection fraction estimated 50 to 54%. There is also reported grade 1 diastolic dysfunction. Concentric LVH. The atria were normal size. Right ventricle is of normal size with normal function. The cardiac valves were structurally unremarkable. There was trace mitral and tricuspid insufficiency only. No evidence to suggest valvular stenosis. No obvious intracardiac shunt. He continues on dual antiplatelet therapy. He has noted some swelling in his legs. He states has been on and off for several months but a little bit worse when he first got to the hospital. It seemed to be getting a little bit better but it is up and down. I explained to the patient that he likely received quite a bit of IV fluids as part of his initial DKA management and thus there may be some residual that just has not had a chance to mobilize yet. I therefore recommended low-dose furosemide for a few days and see if we can mobilize this residualedema. He appears to have adequate blood pressure reserve to tolerate this. I explained that loop diuretics are "potent" and that because he has been josselyn to diuretics in the past, he would likely have a fairly brisk diuretic response. I discussed that diuretics cause sodium wasting and water was pulled along with it. But it can also cause low potassium and magnesium levels. We had a lengthy discussion about dietary management of diabetes. We discussed constituents of "simple carbohydrates" including but not limited to table sugar. We discussed high simple carb foods such as bread, pasta, potatoes, etc. and that he should minimize those. He brought his blood sugar fingerstick record. Overall, he is had excellent control. No Known Allergies Current Outpatient Medications: albuterol HFA (VENTOLIN HFA) 108 (90 Base) MCG/ACT Inhalation Aero Soln, Take 2 Puffs by inhalationEVERY FOUR HOURS NEEDED (wheezing, shortness of breath, cough)., Disp: 54 g, Rfl: 3 aspirin (ECOTRIN) 81 MG Oral Tab EC, Take 81 mg by mouth DAILY., Disp: , Rfl: clotrimazole-betamethasone (LOTRISONE) 1-0.05 % Apply externally Cream, by Topical route TWICE DAILY. APPLY TO AFFECTED AREA, Disp: , Rfl: Febuxostat 80 MG Oral Tab, 80 mg., Disp: , Rfl: LANTUS SOLOSTAR 100 UNIT/ML Subcutaneous Solution Pen-injector, Inject 45 Units beneath the skin DAILY., Disp: , Rfl: losartan (COZAAR) 25 MG Oral Tab, Take 25 mg by mouth DAILY., Disp: , Rfl: metFORMIN (GLUCOPHAGE) 500 MG Oral Tab, Take 500 mg by mouth TWICE DAILY., Disp: , Rfl: metoprolol succinate (TOPROL XL) 25 MG Oral TABLET SR 24 HR, Take 25 mg by mouth DAILY., Disp: , Rfl: NOVOLOG FLEXPEN 100 UNIT/ML Subcutaneous Solution Pen-injector, Inject 1-8 Units beneath the skin.,Disp: , Rfl: Rosuvastatin Calcium (CRESTOR) 40 MG Oral Tab, Take 40 mg by mouth DAILY., Disp: , Rfl: ticagrelor (BRILINTA) 90 MG Oral Tab, Take 90 mg by mouth EVERY TWELVE HOURS., Disp: , Rfl: Social History: Non-smoker. EtOH: Started couple years ago, he was drinking heavily. He had gained well over 50 pounds weight in just a few years. As a consequence of this, he decided to get healthy in the spring 2023. He states he stopped all alcohol at that time. Through combination of dietary limitations and saturated fatsand exercising regularly, he states he is lost 57 pounds and is just a little over 200 pounds now. He states that he wants to get back to his baseline weight of moderate 180 pounds. Family History: Father: History of atrial fibrillation Review of Systems 10 point review system obtained. Pertinent positive noted in HPI or listed below. Others negative. HEENT: No change in vision or hearing GI: Colonoscopy earlier this year. Preop labs showed his blood sugar was mildly elevated. Endocrine: Recent diagnosis diabetes mellitus. Presented with DKA type picture with dehydration, azotemia, mental status changes (confusion). At index presentation, hemoglobin A1c was "over 15". Cardiovascular: Non-STEMI at presentation 05/18/2024. After medically stabilized underwent single-vessel PCI of the LCx. No details available in regard to other coronary anatomy. Endocrine: Dyslipidemia with low HDL. Musculoskeletal: No second arthralgias myalgias. Has noted some modest lower extremity pitting edema on and off in the last several months but worse after discharge from hospital recently slowly improving but still present. Physical Exam Vitals: BP 134/86 (BP Location: Left arm, Patient Position: Sitting) | Pulse 60 | Wt 211 lb 13.8 oz(96.1 kg) General: Adult white male overweight no distress HEENT: Sclera white consistent pale pink oropharynx unremarkable Neck: JVP not elevated no carotid bruits trachea midline. No thyromegaly adenopathy or mass Heart: PMI is not displaced no right ventricular lift. S1-S2 normal. No murmur no S3. Lungs: Respiratory movement symmetric and unlabored. No inspiratory crackles expiration upon. No wheezing. Abdomen: Obese, soft, positive bowel sounds no obvious organomegaly or mass Extremities: Without cyanosis or clubbing. Trace to 1+ pitting edema above the sock line up to the mid shins bilaterally. Pulses normal and symmetric. Left wrist: Radial artery puncture site is without bruit or thrill. Radial pulses easily palpable. Data Review Labs: No results found for: "WBC", "HGB", "HCT", "PLAT" No results found for: "BNP" No results found for: "INR" Lab Results Component Value Date Cholesterol 162 05/23/2024 Triglyceride 211 (H) 05/23/2024 Cholesterol, HDL, Direct 33 05/23/2024 LDL CALCULATION 87 05/23/2024 CHOL/HDL Ratio 4.9 05/23/2024 Imaging Studies: No results found for: "LOREN", "TTE" Assessment and Plan: Jatin was seen today for hospital f/u and edema. Diagnoses and all orders for this visit: Coronary artery disease involving [place] coronary artery of [place] heart without angina pectoris (Primary) Status post insertion of drug eluting coronary artery stent Type 1 diabetes mellitus with other specified complication (HCC) Dyslipidemia Encounter for current termite control representative use of antiplatelet drug Medication management 58-year-old white male with history of single-vessel CAD status post non-STEMI followed by PCI of the LCx. I only have the discharge summary to go by which states single-vessel CAD. Actual catheterization report is not available in the [facility] system. It will be requested. At that presentation, he was found to be azotemic with acute kidney injury, dehydration and markedly elevated blood sugar. He was treated his DKA. He was hospitalized in the ICU with IV insulin and fluid replacement. Renal function improved. Metabolic status improved. He was placed on insulin Lantus and coverage scale. He has no clinical angina. He is getting back to doing some regular exercise without any symptoms of concern. I reviewed his echocardiogram and the available records. I recommended that he go to cardiac rehabilitation to work on building back his fitness level undersupervised conditions and continue his current medical regimen as outlined. I also recommended that he try taking some furosemide for a few days to see if it mobilizes the residual edema his lower extremities. Plan: 1. CAD: Status post non-STEMI and PCI of the LCx. Final cath report needs to be reviewed when available. Continue dual antiplatelet therapy for 1 year with Brilinta and low-dose aspirin. I explained to the patient that Brilinta is very short acting and if he travels he should take extra doses with him in case his travel plans are changed on short notice (like to cancel, etc.). He should not go without Brilinta. I discussed the importance of continuous dual antiplatelet therapy for 1 year after non-STEMI event. He will comply. 2. Refer to cardiac rehabilitation. 3. Edema: Furosemide 20 mg once daily for a few days and then as needed for weight gain greater than 2 pounds or visible edema that recurs. 4. Diabetes: Patient has initial appointment with Dr. Anguiano at [facility] endocrinology Saturday this week. We discussed the importance of determining whether or not he is a type I versus type II diabetic (or type 1.5). This may have impact in regard to consideration for SGLT2 inhibitors in the future. 4. Medications: Continue present medical regimen as outlined. 5. Dyslipidemia: Follow-up lab work can be checked in about 3 months or so to assess efficacy of "high intensity" statin instituted for non-STEMI criteria. His baseline LDL was only 87. Secondary prevention target guideline cholesterol reduction to LDL less than 70, HDL greater than 45-50 and triglycerides less than 100 Prol reviewed with patient. This included lifestyle intervention including diet and exercise as we discussed in great detail. Author: Dayne Miller MD documented in this encounter Plan of Treatment Upcoming Encounters Date Type Department Care Team (Late st Contact Info) Description 06/03/2024 3:30 PM EDT Office Visit [facility] [place] [address] [place] [address] [place] [address] [place] [phone] Codi Carrasco DO [address] [place] [address] DR [address] [place] [address] 06/15/2024 9:40 AM EDT Office Visit [facility] [address] [place] [address] [place] [address] [place] [phone] Parker Dave MD [address] [place] [address] Dr [address] [place] [address] 07/02/2024 2:40 PM EDT Office Visit [facility] [place] [facility] Cardiology [address] [place] [address] Dayne Miller MD [address] [place] [address] 07/14/2024 8:15 AM EDT Office Visit [facility] [place] [facility] Urology [address] [place] [address] Jatin Telles MD [address] [place] [address] 09/02/2024 11:00 AM EST Office Visit [facility] [place] [facility] Cardiology [address] [place] [address] West Goddard MD [address] [place] [address] 11/05/2024 1:20 PM EST Office Visit [facility] Cardiology [address] [place] [address] Dayne Miller MD [address] [place] [address] Scheduled Orders Name Type Priority Associated Diagnoses Orde r Schedule AMBULATORY 12 LEAD EKG (GLOBAL) EKG Routine Coronary artery disease involving [place] coronary artery of [place] heart without angina pectoris Status post insertion of drug eluting coronary artery stent Type 1 diabetes mellitus with other specified complication (HCC) Dyslipidemia Encounter for current fpc use of antiplatelet drug Medication management Bilateral leg edema Ordered: 06/01/2024 Scheduled Referrals Name Type Priority Associated Diagnoses Orde r Schedule REFER TO CARDIAC REHAB PHASE II Referral Routine Non-ST elevation (NSTEMI) myocardial infarction (HCC) 99 Occurrences starting 06/01/2024 until 06/01/2025 Health Maintenance Due Date Last Done Comments [...] PNEUMOCOCCAL 0-64 YRS Aged Out No tonya mratina eligible based on patient's age to complete this topic RSV IMMUNIZATION <20 MONTHS Aged Out No longer eligible based on patient's age to complete this topic documented as of this encounter Visit Diagnoses Diagnosis Coronary artery disease involving [place] coronary artery of [place] heart without angina pectoris- Primary Status post insertion of drug eluting coronary artery stent Type 1 diabetes mellitus with other specified complication (HCC) Dyslipidemia Other and unspecified hyperlipidemia Encounter for current fpc use of antiplatelet drug Medication management Encounter for long-term (current) use of other medications Bilateral leg edema Edema Non-ST elevation (NSTEMI) myocardial infarction (HCC) Acute myocardial infarction, subendocardial infarction, episode of care unspecified documented in this encounter Care Teams Activities Director Scouting Relationship Specialty Start Date End Date Parker Ramirez DO [phone] [place] [address] PCP - General FAMILY PRACTICE 04/08/24 documented as of this encounter
--- OUTSIDE RECORDS SUMMARY | 2024-06-21 02:01 | External Medical Summary | Summary of Care ---
Author Name Unknown Organization [facility] Address [address] [address] Care Team Providers Care Safety Technician Name Role Phone Parker Ramirez DO Primary Care Provider [phone] Encounter Details Date Type Department Care Team (Late st Contact Info) Description 05/27/2024 Orders Only [facility] [address] [place] [phone] Parker Ramirez DO [phone] [place] [address] Medications Medication Sig Dispensed Refills Start Date End Date Status albuterol HFA (VENTOLIN HFA) 108 (90 Base) MCG/ACT Inhalation Aero SolnIndications:Mild intermittent asthma, unspecified whether complicated Take 2 Puffs by inhalation EVERY FOUR HOURS NEEDED (wheezing, shortness of breath, cough). 54 g 3 05/27/2024 Active documented as of this encounter (statuses as of 05/27/2024) Social History Tobacco Use Types Packs/Day Years [...] AM EDT Office Visit [facility] [place] [facility] Rheumatology [address] [address] Parker Dave MD [address] [place] [address] 07/02/2024 2:40 PM EDT Office Visit [facility] [place] [facility] Cardiology [address] [place] [address] Dayne Miller MD [address] [place] [address] 07/14/2024 8:15 AM EDT Office Visit [facility] [place] [facility] Urology [address] [place] [address] Jatin Telles MD [address] [place] [address] 11/05/2024 1:20 PM EST Office Visit [facility] [place] [facility] Cardiology [address] [place] [address] Dayne Miller MD [address] [place] [address] Health Maintenance Due Date Last Done Comments [...] as of this encounter Visit Diagnoses Diagnosis Mild intermittent asthma, unspecified whether complicated- Primary documented in this encounter Insurance Payer Benefit Plan / Group Subscriber ID Effective Dates Phone Address Type AETNA COMMERCIAL AETNA [id number] 2023-Pr [facility] [address] [place] [address] [employer] documented as of this encounter Care Teams Safety Technician Relationship Specialty Start Date End Date Parker Ramirez DO [phone] [place] [address] PCP - General FAMILY PRACTICE 04/08/24 documented as of this encounter
--- OUTSIDE RECORDS SUMMARY | 2024-06-21 02:01 | External Medical Summary | Summary of Care ---
Author Name Unknown Organization [facility] Address [address] [address] Care Team Providers Care Special Education Itinerant Teacher Name Role Phone Parker Ramirez DO Primary Care Provider [phone] Reason for Visit * Reason Comments Diabetes Mellitus Brought BG log New Patient Encounter Details Date Type Department Care Team (Late st Contact Info) Description 06/03/2024 3:30 PM EDT Office Visit [place] 161 [facility] Endocrinology [address] [place] [address] Codi Carrasco DO [address] [place] [address] [address] Type 1 diabetes mellitus without complication (HCC) (Primary Dx) Allergies No known active allergiesdocumented as of this encounter (statuses as of 06/03/2024) Medications Medication Sig Dispensed Refills Start Date End Date Status albuterol HFA (VENTOLIN HFA) 108 (90 Base) MCG/ACT Inhalation Aero SolnIndications:Mil d intermittent asthma, unspecified whether complicated Take 2 Puffs by inhalation EVERY FOUR HOURS NEEDED (wheezing, shortness of breath, cough). 54 g 3 05/27/2024 Active aspirin (ECOTRIN) 81 MG Oral Tab EC Take 81 mg by mouth DAILY. 05/24/2024 05/24/2025 Active clotrimazole-betame thasone (LOTRISONE) 1-0.05 % Apply externally Cream by [...] Tablet by mouth DAILY. 05/24/2024 05/24/2025 Active B-D UF III MINI PEN NEEDLES 31G X 5 MM Does not apply Misc USE 1 BY MISCELLANEOUS ROUTE 4 TIMES DAILY. E11.65 (TYPE 2 DIABETES) 05/23/2024 Active Blood Glucose Monitoring Suppl (FREESTYLE LITE) w/Device Does not apply Kit DIRECTED. 05/23/2024 Active PRECISION QID TEST In Vitro Strip Freestyle Lite meter 05/23/2024 Active Alcohol Swabs (CVS PREP) 70 % Does not apply Pads USE NEEDED 05/23/2024 Active documented as of this encounter (statuses as of 06/03/2024) Active Problems Problem Noted Date Diagnosed Date Coronary artery disease invo lving [place] coronary artery of [place] heart without angina pectoris 06/01/2024 Type 1 diabetes mellitus with other specified co mplication 06/01/2024 Dyslipidemia 06/01/2024 Encounter for current [facility] use of antiplate let drug 06/01/2024 Medication management 06/01/2024 Status post insertion of drug eluting coronary a rtery stent 06/01/2024 documented as of this encounter (statuses as of 06/03/2024) Social History Tobacco Use Types Packs/Day Years [...] Sign Reading Time Taken Comments Blood Pressure 98/62 06/03/2024 3:44 PM EDT Pulse 64 06/03/2024 3:44 PM EDT Temperature - - Respiratory Rate - - Oxygen Saturation - - Inhaled Oxygen Concentration - - Weight 95.4 kg (210 lb 6.4 oz) 06/03/2024 3:44 P M EDT Height 179.1 cm (5' 10.5") 06/03/2024 3:44 PM ED T Body Mass Index 29.76 06/03/2024 3:44 PM EDT documented in this encounter Progress Notes * Codi Carrasco DO - 06/03/2024 3:30 PM EDT Endo Office Note [address] [place] [address] PATIENT: Jatin Love : 1965 DATE OF SERVICE: 06/03/2024 REFERRING PRACTITIONER: Parker Ramirez PRIMARY CARE PROVIDER: Parker Ramirez CHIEF COMPLAINT: Chief Complaint Patient presents with Diabetes Mellitus Brought BG log New Patient Subjective HISTORY OF PRESENT ILLNESS: Jatin Love is a 58-y.o. male who presents for an evaluation of Diabets mellitus type unknown. Chart review impared fasting glucose seen with 109 on 07/2020 lab if alb was fasting; A1c 6.5% 07/2023. Spring colonoscopy (11/2023) he states was told glucose 199. Was told to make changes. He changed active (tennis,golf, walk), no alcohol, improved diet, was 262lbs and he intentionally lost [id number], drinking water (had been drinking soda), vitamin water and fruit. He was drinking a lot and urinating a lot. So he saw Dr. Telles no issues with prostate. He was at the [place] [employer] event. He was feeling great. Ate raw hamburger got food poisoning.Dehydrated and confused. Leg red reticular finding bilateral. Told DKA. A1c > 15%. Did have cathfinding CAD with stent. Was in hospital 6 days with 2 days in ICU. Long acting (lantus) 45 units takes mid day. Novolog 1to 3 unis if glucose > 140 premeal sliding scale. Lows in AM 80-100. Another time 50s pre dinner. Diet - protein/veggies. Medical Gout Family history Gout No diabetes, no heart. Father - prostate cancer REVIEW OF SYSTEMS A 10 point review of systems was done and negative with the exception of those stated in the history of present illness. Patient Active Problem List Diagnosis Coronary artery disease involving [place] coronary artery of [place] heart without angina pectoris Type 1 diabetes mellitus with other specified complication (HCC) Dyslipidemia Encounter for current terminal clerk use of antiplatelet drug Medication management Status post insertion of drug eluting coronary artery stent No past medical history on file. No past surgical history on file. No family history on file. Current Outpatient Medications Medication Sig albuterol HFA (VENTOLIN HFA) 108 (90 Base) MCG/ACT Inhalation Aero Soln Take 2 Puffs by inhalation EVERY FOUR HOURS NEEDED (wheezing, shortness of breath, cough). Alcohol Swabs (CVS PREP) 70 % Does not apply Pads USE NEEDED aspirin (ECOTRIN) 81 MG Oral Tab EC Take 81 mg by mouth DAILY. B-D UF III MINI PEN NEEDLES 31G X 5 MM Does not apply Misc USE 1 BY MISCELLANEOUS ROUTE 4 TIMES DAILY. E11.65 (TYPE 2 DIABETES) Blood Glucose Monitoring Suppl (FREESTYLE LITE) w/Device Does not apply Kit DIRECTED. clotrimazole-betamethasone (LOTRISONE) 1-0.05 % Apply externally Cream by Topical route TWICE DAILY. APPLY TO AFFECTED AREA Febuxostat 80 MG Oral Tab 80 mg. furosemide (LASIX) 20 MG Oral Tab Take 1 Tablet by mouth DAILY. LANTUS SOLOSTAR 100 UNIT/ML Subcutaneous Solution Pen-injector Inject 45 Units beneath the skin DAILY. losartan (COZAAR) 25 MG Oral Tab Take 25 mg by mouth DAILY. metFORMIN (GLUCOPHAGE) 500 MG Oral Tab Take 500 mg by mouth TWICE DAILY. metoprolol succinate (TOPROL XL) 25 MG Oral TABLET SR 24 HR Take 25 mg by mouth DAILY. Multiple Vitamin (MULTI-VITAMIN) Oral Tab Take 1 Tablet by mouth DAILY. NOVOLOG FLEXPEN 100 UNIT/ML Subcutaneous Solution Pen-injector Inject 1-8 Units beneath the skin. PRECISION QID TEST In Vitro Strip Freestyle Lite meter Rosuvastatin Calcium (CRESTOR) 40 MG Oral Tab Take 40 mg by mouth DAILY. ticagrelor (BRILINTA) 90 MG Oral Tab Take 90 mg by mouth EVERY TWELVE HOURS. No current facility-administered medications for this visit. No Known Allergies Social History Socioeconomic History Marital status: Single Spouse name: Not on file Number of children: Not on file Years of education: Not on file Highest education level: Not on file Occupational History Not on file Tobacco Use Smoking status: Never Smokeless tobacco: Never Substance and Sexual Activity Alcohol use: Not on file Drug use: Not on file Sexual activity: Not on file Other Topics Concern Not on file Social History Narrative Not on file Social Determinants of Health Financial Resource Strain: Low Risk (05/18/2024) Received from [facility] Overall Financial Resource Strain (CARDIA) Difficulty of Paying Living Expenses: Not hard at all Food Insecurity: No Food Insecurity (05/18/2024) Received from [facility] Hunger Vital Sign Worried About Running Out of Food in the Last Year: Never true Ran Out of Food in the Last Year: Never true Transportation Needs: No Transportation Needs (05/18/2024) Received from [facility] PRAPARE - Transportation Lack of Transportation (Medical): No Lack of Transportation (Non-Medical): No PHYSICAL EXAM VITALS: BP 98/62 | Pulse 64 | Ht 5' 10.5" (1.791 m) | Wt 210 lb 6.4 oz (95.4 kg) | BMI 29.76 kg/mBody mass index is 29.76 kg/m. General: Awake alert and oriented x 3. No acute distress. Head/Neck: Atraumatic. Non-tender. ENT: Voice not hoarse. Speaking without issue. Eyes: No obvious exophalmus, no lid lag, no stare Respiratory: normal effort, no auditory wheezing, Card RRR Abdom: no tenderness, Neurological: No tremor of outstretched hands. Psyc: Mood and affect normal. Labs: ordered Imaging will consider order. IMPRESSION and PLAN: ICD-10-CM 1. Type 1 diabetes mellitus without complication (HCC) E10.9 GLYCOHEMOGLOBIN A1C - I suspect likely type 2 - education done on both type 1 and type 2 - check fingerstick qach - novolog > 140 start 1 unts increase as scale - Lantus decrease to 40 units. (Due to decrease overnight HS to AM > 50) 100-140. Continue to lower so that HS to AM stay about 100-140. New diagnosis. Education and discussion most of the visit. Total time chart review, history, exam, educaiton/discussion, documentation, oders. Follow up 70 min Author: Codi Carrasco DO 06/03/2024 17:05 documented in this encounter Plan of Treatment Upcoming Encounters Date Type Department Care Team (Late st Contact Info) Description 06/15/2024 9:40 AM EDT Office Visit [facility] 161 [facility] Rheumatology [address] [place] [address] Parker Dave MD [address] [place] [address] 07/02/2024 2:40 PM EDT Office Visit [place] 169 [facility] Cardiology [address] [place] [address] Dayne Miller MD [address] [place] [address] 07/14/2024 8:15 AM EDT Office Visit [place] 169 [facility] Urology [address] [place] [address] Jatin Telles MD [address] [place] [address] 09/02/2024 11:00 AM EST Office Visit [facility] [place] 169 [facility] Cardiology [address] [place] [address] West Goddard MD [address] [place] [address] 09/03/2024 3:30 PM EST Office Visit [facility] [place] 161 [facility] Endocrinology [address] [place] [address] Codi Carrasco DO [address] [place] [facility] [place] [address] 11/05/2024 1:20 PM EST Office Visit [facility] [place] 169 [facility] Cardiology [address] [place] [address] Dayne Miller MD [address] [place] [address] Scheduled Orders Name Type Priority Associated Diagnoses Orde r Schedule GLYCOHEMOGLOBIN A1C Lab Routine Type 1 diabetes mellitus without complication (HCC) Expected: 09/02/2024 (Approximate), Expires: 06/03/2025 Health Maintenance Due Date Last Done Comments [...] VACCINE (#1) 2024 HEMOGLOBIN A1C 11/15/2024 05/18/2024, 10/2023, 05/18/2024, Additional history exists LIPID DISORDER Diagnostic 05/23/2025 05/23/2024, 03/2024 HEPATITIS A IMMUNIZATION SERIES Aged Out No [...] as of this encounter Visit Diagnoses Diagnosis Type 1 diabetes mellitus without complication (HCC)- Primary Type I (juvenile type) diabetes mellitus without mention of complication, not stated as uncontrolled documented in this encounter Care Teams Special Education Itinerant Teacher Relationship Specialty Start Date End Date Parker Ramirez DO [phone] [place] [address] PCP - General FAMILY PRACTICE 04/08/24 documented as of this encounter
--- OUTSIDE RECORDS SUMMARY | 2024-06-21 02:01 | External Medical Summary | Summary of Care ---
Author Name Unknown Organization [facility] Address [address] [address] Care Team Providers Care Mixing Plant Operator Name Role Phone Parker Ramirez DO Primary Care Provider [phone] Encounter Details Date Type Department Care Team (Late st Contact Info) Description 06/18/2024 Telephone [facility] [facility] Endocrinology [address] [place] [address] Codi Carrasco DO [address] [address] Allergies No known active allergiesdocumented as of this encounter (statuses as of 06/19/2024) Medications Medication Sig Dispensed Refills Start Date End Date Status albuterol HFA (VENTOLIN HFA) 108 (90 Base) MCG/ACT Inhalation Aero SolnIndications:Mil d intermittent asthma, unspecified whether complicated Take 2 Puffs by inhalation EVERY FOUR HOURS NEEDED (wheezing, shortness of breath, cough). 54 g 3 05/27/2024 Active clotrimazole-betame thasone (LOTRISONE) 1-0.05 % Apply externally Cream by Topical route TWICE DAILY. APPLY TO AFFECTED AREA 03/30/2024 Active Febuxostat 80 MG Oral Tab 80 mg. 06/25/2023 Active Multiple Vitamin (MULTI-VITAMIN) Oral Tab Take 1 Tablet by mouth DAILY. 05/24/2024 05/24/2025 Active Blood Glucose Monitoring Suppl (FREESTYLE LITE) w/Device Does not apply Kit DIRECTED. 05/23/2024 Active PRECISION QID TEST In Vitro Strip Freestyle Lite meter 05/23/2024 Active Alcohol Swabs ([facility]S PREP) 70 % Does not apply Pads USE NEEDED 05/23/2024 Active Glucose Blood (FREESTYLE LITE) In Vitro StripIndications:Ty pe 1 diabetes mellitus without complication (HCC) 1 Each by In Vitro route FOUR TIMES DAILY. 400 Each 3 06/09/2024 Active FREESTYLE LANCETS Does not apply MiscIndications:Typ e 1 diabetes mellitus without complication (HCC) 1 Each FOUR TIMES DAILY. 400 Each 06/09/2024 Active B-D UF III MINI PEN NEEDLES 31G X 5 MM Does not apply MiscIndications:Typ e 1 diabetes mellitus without complication (HCC) 1 Each FOUR TIMES DAILY. 400 Each 06/09/2024 Active LANTUS SOLOSTAR 100 UNIT/ML Subcutaneous Solution Pen-injectorIndicat ions:Type 1 diabetes mellitus without complication (HCC) Inject 40 Units beneath the skin DAILY. MDD 45 units 45 mL 06/09/2024 Active NOVOLOG FLEXPEN 100 UNIT/ML Subcutaneous Solution Pen-injectorIndicat ions:Type 1 diabetes mellitus without complication (HCC) Inject 0-4 Units beneath the skin DIRECTED. Per sliding scale. MDD 15 units 15 mL 3 06/09/2024 Active ticagrelor (BRILINTA) 90 MG Oral TabIndications:Gemma nary artery disease involving [place] coronary artery of [place] heart without angina pectoris,Status post insertion of drug eluting coronary artery stent,Type 1 diabetes mellitus with other specified complication (HCC),Non-ST elevation (NSTEMI) myocardial infarction (HCC) Take 1 Tablet by mouth EVERY TWELVE HOURS. 180 Tablet 3 06/16/2024 06/16/2025 Active aspirin (ECOTRIN) 81 MG Oral Tab ECIndications:Coron kole artery disease involving [place] coronary artery of [place] heart without angina pectoris,Status post insertion of drug eluting coronary artery stent,Type 1 diabetes mellitus with other specified complication (HCC),Non-ST elevation (NSTEMI) myocardial infarction (HCC) Take 1 Tablet by mouth DAILY. 90 Each 3 06/16/2024 06/16/2025 Active losartan (COZAAR) 25 MG Oral TabIndications:Gemma nary artery disease involving [place] coronary artery of [place] heart without angina pectoris,Status post insertion of drug eluting coronary artery stent,Type 1 diabetes mellitus with other specified complication (HCC),Non-ST elevation (NSTEMI) myocardial infarction (HCC) Take 1 Tablet by mouth DAILY. 90 Each 3 06/16/2024 06/16/2025 Active Rosuvastatin Calcium (CRESTOR) 40 MG Oral TabIndications:Gemma nary artery disease involving [place] coronary artery of [place] heart without angina pectoris,Status post insertion of drug eluting coronary artery stent,Type 1 diabetes mellitus with other specified complication (HCC),Non-ST elevation (NSTEMI) myocardial infarction (HCC) Take 1 Tablet by mouth DAILY. 90 Each 3 06/16/2024 06/16/2025 Active metoprolol succinate (TOPROL XL) 25 MG Oral TABLET SR 24 HRIndications:Coron kole artery disease involving [place] coronary artery of [place] heart without angina pectoris,Status post insertion of drug eluting coronary artery stent,Type 1 diabetes mellitus with other specified complication (HCC),Non-ST elevation (NSTEMI) myocardial infarction (HCC) Take 1 Tablet by mouth DAILY. 90 Tablet 3 06/16/2024 06/16/2025 Active furosemide (LASIX) 20 MG Oral TabIndications:Gemma nary artery disease involving [place] coronary artery of [place] heart without angina pectoris,Status post insertion of drug eluting coronary artery stent,Type 1 diabetes mellitus with other specified complication (HCC),Non-ST elevation (NSTEMI) myocardial infarction (HCC) Take 1 Tablet by mouth DAILY. 90 Each 30 06/16/2024 Active metFORMIN (GLUCOPHAGE) 500 MG Oral TabIndications:Type 1 diabetes mellitus with other specified complication (HCC) Take 1 Tablet by mouth TWICE DAILY for 90 days. 180 Tablet 06/17/2024 09/15/2024 Active documented as of this encounter (statuses as of 06/19/2024) Active Problems Problem Noted Date Diagnosed Date Coronary artery disease invo lving [place] coronary artery of [place] heart without angina pectoris 06/01/2024 Type 1 diabetes mellitus with other specified co mplication 06/01/2024 Dyslipidemia 06/01/2024 Encounter for current retirement use of antiplate let drug 06/01/2024 Medication management 06/01/2024 Status post insertion of drug eluting coronary a rtery stent 06/01/2024 documented as of this encounter (statuses as of 06/19/2024) Social History Tobacco Use Types Packs/Day Years [...] on file documented as of this encounter Miscellaneous Notes * Telephone Encounter - Mora Espinoza - 06/18/2024 3:14 PM EDT Pt dropped off envelope containing BG logs. Placed in provider's inbox for review. documented in this encounter Plan of Treatment Upcoming Encounters Date Type Department Care Team (Late st Contact Info) Description 06/23/2024 10:30 AM EDT Appointment [facility] Cardiac Rehab [address] [place] [address] 07/02/2024 2:40 PM EDT Office Visit [place] [address] [place] [address] Cardiology [address] [place] [address] Dayne Miller MD [address] [place] [address] 07/14/2024 8:15 AM EDT Office Visit [place] [address] [place] [address] Urology [address] [place] [address] Jatin Telles MD [address] [place] [address] 09/02/2024 11:00 AM EST Office Visit [place] [address] [place] [address] Cardiology [address] [place] [address] West Goddard MD [address] [place] [address] 09/03/2024 3:30 PM EST Office Visit [place] 161 [facility] Endocrinology [address] [place] [address] Codi Carrasco DO [address] [place] [address] [facility] [place] [address] 11/05/2024 1:20 PM EST Office Visit [place] [address] [facility] Cardiology [address] [place] [address] Dayne Miller MD [address] [place] [phone] Health Maintenance Due Date Last Done Comments [...] Dates Phone Address Type AETNA COMMERCIAL AETNA [id number] 2023-Pr [facility] [address] [place] [address] [employer] documented as of this encounter Care Teams Mixing Plant Operator Relationship Specialty Start Date End Date Parker Ramirez DO [phone] [place] [address] PCP - General FAMILY PRACTICE 04/08/24 documented as of this encounter
--- OUTSIDE RECORDS SUMMARY | 2024-06-21 02:01 | External Medical Summary | Summary of Care ---
Author Name Unknown Organization [facility] Address [address] [address] Care Team Providers Care Senior Pl Sql Developer Name Role Phone Parker Ramirez DO Primary Care Provider [phone] Reason for Visit * Reason Comments Diabetes Mellitus Brought BG log New Patient Encounter Details Date Type Department Care Team (Late st Contact Info) Description 06/03/2024 3:30 PM EDT Office Visit [facility] [place] [facility] Endocrinology [address] [place] [place] [address] Codi Carrasco DO [address] [place] [address] [address] Type 1 diabetes mellitus without complication (HCC) [...] Diagnosed Date Coronary artery disease invo lving [place] coronary artery of [place] heart without angina pectoris 06/01/2024 Type 1 diabetes mellitus with other specified co mplication 06/01/2024 Dyslipidemia 06/01/2024 Encounter for current alf use of antiplate let drug 06/01/2024 Medication [...] 3:30 PM EDT Endo Office Note [address] [place] [address] PATIENT: Jatin Love : 1965 DATE OF [...] diet, was 262lbs and he intentionally lost [id number], drinking water (had been drinking soda), vitamin [...] Problem List Diagnosis Coronary artery disease involving [place] coronary artery of [place] heart without angina pectoris Type 1 diabetes mellitus with other specified complication (HCC) Dyslipidemia Encounter for current watermelon inspector use of antiplatelet drug Medication management Status [...] Resource Strain: Low Risk (05/18/2024) Received from [facility] Overall Financial Resource Strain (CARDIA) Difficulty of Paying Living Expenses: Not hard at all Food Insecurity: No Food Insecurity (05/18/2024) Received from [facility] Hunger Vital Sign Worried About Running Out of Food in the Last Year: Never true Ran Out of Food in the Last Year: Never true Transportation Needs: No Transportation Needs (05/18/2024) Received from [facility] PRAPARE - Transportation Lack of Transportation (Medical): [...] AM EDT Office Visit [facility] [place] [facility] Rheumatology [address] [place] [address] Parker Dave MD [address] [place] [address] 07/02/2024 2:40 PM EDT Office Visit [facility] [place] [facility] Cardiology [address] [place] [address] Dayne Miller MD [address] [place] [address] 07/14/2024 8:15 AM EDT Office Visit [facility] [place] [facility] Urology [address] [place] [address] Jatin Telles MD [address] [place] [address] 09/02/2024 11:00 AM EST Office Visit [facility] [place] [facility] Cardiology [address] [place] [address] West Goddard MD [address] [place] [address] 09/03/2024 3:30 PM EST Office Visit [facility] [place] [facility] Endocrinology [address] [place] [address] Codi Carrasco DO [address] Alvarez [facility] [place] [address] 11/05/2024 1:20 PM EST Office Visit [facility] [place] [facility] Cardiology [address] [place] [address] Dayne Miller MD [address] [place] [address] Scheduled Orders Name Type Priority Associated Diagnoses [...] uncontrolled documented in this encounter Care Teams Senior Pl Sql Developer Relationship Specialty Start Date End Date Parker Ramirez DO [phone] [place] [address] PCP - General FAMILY PRACTICE 04/08/24 documented as of this encounter
--- OUTSIDE RECORDS SUMMARY | 2024-06-21 02:01 | External Medical Summary | Summary of Care ---
Author Name Unknown Organization [facility] Address [address] [address] Care Team Providers Care Raw Shellfish Preparer Name Role Phone Parker Ramirez DO Primary Care Provider [phone] Reason for Referral * Refer to Department Only (Routine) - Authorized Specialty Diagnoses / Procedures Referred By Contac t Referred To Contact Cardiac Rehabilitation Diagnoses Non-ST elevation (NSTEMI) myocardial infarction (HCC) Dayne Miller MD [address] [place] [address] [facility] Cardiac Rehab [address] [place] [address] Referral ID Status Reason Start Date Expiration Date V isits Requested Visits Authorized [id number] Authorized 06/01/2024 06/01/2025 99 99 Question Answer Specify Diagnosis: Non-ST elevation (NSTEMI) myocardial infarction (HCC) [804403] Comments Reason For Referral: S/P 05/20/2024 LCX stent Patient Background: as above. ECHO 05/19/2024> LVEF 50-55%, normal wall motion, NO sig valve disease Patient Background: Jatin Love is a 58-y.o. male. Evaluate and Treat: Follow Protocols for Cardiac Rehab Patients and Adverse Effects, Policy [id number]. To view the entire cardiac rehab exercise [...] carbohydrate (CHO) orally such as 4 oz Aiken juice, ester crackers, skim milk or sugar [...] department for blood glucose lab confirmation. At [facility] will repeat blood glucose if < 50 mg/dL and if second blood glucose is < 50 mg/dL the medical superintendent will be notified and further direct patient's care. Signs and Symptoms of Hyperglycemia: If blood glucose result is > 500 mg/dL and patient is symptomatic, initiate Emergency Response Team. If patient is asymptomatic, transport to emergency department for blood glucose lab confirmation. [facility] would contact Hand Assembler to further direct patient care. For Chest [...] AM EDT Office Visit Mahogany [place] [facility] Cardiology [address] [place] [address] Dayne Miller MD [address] [place] [address] [place] [address] Coronary artery disease involving the [place] coronary artery of [place] heart without angina pectoris (Primary Dx); Status post insertion of drug eluting coronary artery stent; Type 1 diabetes mellitus with other specified complication (HCC); Dyslipidemia; Encounter for current jail use of antiplatelet drug; Medication management; Bilateral [...] Diagnosed Date Coronary artery disease invo lving the [place] coronary artery of [place] heart without angina pectoris 06/01/2024 Type 1 diabetes mellitus with other specified co mplication 06/01/2024 Dyslipidemia 06/01/2024 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 Other medications remain the same. Office in 3 months documented in this encounter Progress Notes * Dayne Miller MD - 06/01/2024 11:40 AM EDT CARDIOLOGY OFFICE CONSULT [facility] [address] [place] [address] [place] [address] Name: Jatin Love : 1965 Age: 58-y.o. REFERRING PHYSICIAN: Self-referred No address on file DATE OF CONSULT: 06/01/2024 Reason for Consult: Chief Complaint Patient presents with Hospital F/U Edema History of Present Illness Jatin Love is a 58-y.o. male comes the office for follow-up to recent ACS with coronary PCI/stent to left circumflex (final Report is not available with records from [facility]). At that admission was diagnosed with presumed type 1 diabetes mellitus (? Type 1.5). On 05/18/2024, he was at the [employer] tennis tournament with his girlfriend. He states he had some food poisoning. He ate what he thinks was undercooked hamburger. He had vomiting and diarrhea and felt really poorly. It was also a particularly hot day. He and his girlfriend decided to head back to the [facility] early. While driving back, he became somewhat [...] all the records through care [facility] and I cannot find the actual catheter [...] normal size. Right ventricle is of normal sizewith normal function. The cardiac valves were structurally unremarkable. There was trace mitral andtricuspid insufficiency only. 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 I only have the discharge summary to go by which states single-vessel CAD. Actual catheterization report is not available in the [facility] system. It will be requested. At that [...] has initial appointment with Dr. Anguiano at [facility] endocrinology Saturday this week. We discussed [...] 3:30 PM EDT Office Visit [facility] [place] [address] [place] [address] [place] [address] [place] [phone] Codi Carrasco DO [address] [place] [address] DR Al[address] [place] [address] 06/15/2024 9:40 AM EDT Office Visit [facility] [place] [address] [place] [address] [place] [address] [place] [address] Parker Dave MD [address] [place] [address] Dr [address] [place] [address] 07/02/2024 2:40 PM EDT Office Visit [facility] [place] [facility] Cardiology [address] [place] [address] Dayne Miller MD [address] [place] [address] 07/14/2024 8:15 AM EDT Office Visit [facility] [place] [facility] Urology [address] [place] [address] Jatin Telles MD [address] [place] [address] 09/02/2024 11:00 AM EST Office Visit [facility] [place] [facility] Cardiology [address] [place] [address] West Goddard MD [address] [place] [address] 11/05/2024 1:20 PM EST Office Visit [facility] [place] [facility] Cardiology [address] [place] [address] Dayne Miller MD [address] [place] [address] Scheduled Orders Name Type Priority Associated Diagnoses Orde r Schedule AMBULATORY 12 LEAD EKG (GLOBAL) EKG Routine Coronary artery disease involving the [place] coronary artery of [place] heart without angina pectoris Status post insertion of drug eluting coronary artery stent Type 1 diabetes mellitus with other specified complication (HCC) Dyslipidemia Encounter for current jail use of antiplatelet drug Medication management Bilateral [...] Visit Diagnoses Diagnosis Coronary artery disease involving [place] coronary artery of [place] heart without angina pectoris- Primary Status post insertion of drug eluting coronary artery stent Type 1 diabetes mellitus with other specified complication (HCC) Dyslipidemia Other and unspecified hyperlipidemia 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
[2024-06-21 04:54] LABS: Basophils # (auto) 0.02 K/uL (0.00-0.20); Basophils % (auto) 0.2 %; Eosinophils # (auto) 0.11 K/uL (0.00-0.50); Eosinophils % (auto) 1.3 %; Hematocrit (blood only) 30.6 % (42.0-52.0); Hemoglobin 10.4 g/dl (14.0-18.0); Immature Granulocytes # (auto) 0.03 K/uL (0.01-0.20); Immature Granulocytes % (auto) 0.4 %; Lymphocytes # (auto) 2.03 K/uL (1.20-3.40); Lymphocytes % (auto) 23.9 %; Mean Corpuscular Volume 91.3 fL (80.0-100.0); Mean Platelet Volume 9.3 fL (9.4-12.4); Monocytes # (auto) 0.54 K/uL (0.11-0.59); Monocytes % (auto) 6.3 %; Neutrophils # (auto) 5.78 K/uL (1.40-6.50); Neutrophils % (auto) 67.9 %; Platelet Count 272 K/uL (130-400); RDW Coefficient of Variation 12.6 % (11.5-14.5); RDW Standard Deviation 41.6 fL (36.4-46.3); Red Blood Count 3.35 M/uL (4.70-6.10); White Blood Count 8.51 K/ul (4.8-10.8)
[2024-06-21 05:11] LABS: BUN Creatinine Ratio 20.2 (10-20); Calcium 8.6 mg/dl (8.6-10.3); Creatinine Clr Calc Pharmacy 113.8 ml/min; Potassium 4.1 mmol/L (3.5-5.1)
[2024-06-21 07:09] LABS: Estimated Average Glucose 206 mg/dl; Hemoglobin A1C 8.8 % (4.5-5.6)
[2024-06-21 07:14] VITALS: RESP 16
[2024-06-21 07:36] VITALS: PULSE 71
[2024-06-21] MEDS: LANTUS PER UNIT CHARGE SC SCH (09:26)
[2024-06-21 10:33] LABS: Hematocrit (blood only) 33.2 % (42.0-52.0); Hemoglobin 10.8 g/dl (14.0-18.0)
[2024-06-21] MEDS: THIAMINE HCL 100 MG TAB PO SCH (10:38)
[2024-06-21] MEDS: PANTOprazole 40 MG TAB PO SCH (10:38)
[2024-06-21 11:26] VITALS: BP 120/75; O2SAT 98
[2024-06-21] MEDS ORDERED: TICAGRELOR 90 MG TAB PO SCH (12:30)
[2024-06-21] MEDS ORDERED: ASPIRIN 81 MG ECTAB PO SCH (12:30)
[2024-06-21] MEDS: METOPROLOL SUCC 25MG EXT REL TAB PO SCH (13:08)
--- NOTE | 2024-06-21 13:25 | Hospitalist Progress Note ---
Date of Service June 21, 2024 Assessment & Plan (1) Syncope: Plan: Syncope Likely secondary to hypotension/orthostasis Mild troponin elevation likely demand ischemia secondary to above Patient admits to have not eaten due to the game, took his diuretics and consumed alcohol likely causing dehydration --CT Head: No acute intracranial findings. No calvarial fractures. --ECHO: EF 50 to 60%. Known dilated cardiac chambers. No significant valvular pathology. Continue to hold losartan as blood pressure relatively low Patient prefers to be discharged home today Advised to get ZIO monitor as outpatient and avoid alcohol use and keep himself hydrated Right knee abrasion/wound Fall precautions Continue local wound care Pain is controlled Esophagitis --Chest CT:Moderate circumferential wall thickening of the mid to distal esophagus with trace mediastinal fluid. This is nonspecific but favors esophagitis. Distended, fluid-filled stomach better depicted on the CT of the abdomen and pelvis which will be reported separately. Avoid NSAIDs Started on Protonix Advised to follow-up with GI as outpatient for possible endoscopy Abnormal CT abdomen /pelvis --CT ABD:Normal appendix. No evidence for a bowel obstruction. Fluid-filled distended stomach. This may simply represent gastroenteritis. However, gastric outlet obstruction/duodenal obstruction could have a similar imaging appearance. If persistent symptoms, GI consultation is recommended. Subtle peripancreatic stranding/soft tissue which extends along the proximal duodenum and superior mesenteric vein. Although the appearance is not typical, acute pancreatitis cannot be excluded. Autoimmune pancreatitis is also within the differential. A follow-up CT in one month to ensure resolution and exclude the much less likely possibility of a neoplastic etiology is recommended. Diffuse small bowel wall thickening with minimal adjacent stranding and fluid. This suggests a nonspecific enteritis which should be assessed on follow-up CT. Circumferential distal esophageal wall thickening which may reflect esophagitis. -- Patient admits to having a " food poisoning" infection recently -- Findings likely related to recent infection --Patient denies any nausea, vomiting, abdominal pain. No issues with bowel movements per patient Advised to follow-up with gastroenterology as outpatient for possible EGD and colonoscopy Alcohol use No signs of withdrawal Continue thiamine CAD S/P stent Continue home medications Resume losartan when blood pressure more stable DM II Uncontrolled, recent diagnosis HbA1c 8.8 Continue insulin while hospitalized Monitor BGs DVT Px: SCDs for now Code Status Full code Admission and Anticipated Discharge Date Admission Date: June 20, 2024 Subjective Patient is seen and examined at bedside States feeling well today Denies any nausea, vomiting, abdominal pain, chest pain, dyspnea, dizziness Also denies any significant pain of right knee Prefers to be discharged home today Offers no other complaints Review of Systems 2 Review of Systems: All systems reviewed & are unremarkable except as noted in Subjective Physical Exam Physical Exam: Physical Exam: Vitals signs as noted above General Appearance:Moderately built and nourished, no apparent distress Head: normocephalic, Atraumatic Eyes: normal inspection, EOMI Neck: supple, Trachea midline Respiratory/Chest: Normal breath sounds, CTA, No accessory muscle use Cardiovascular: S1, S2, No murmur Abdomen/GI:Soft, Non tender, Protuberant, Bowel sounds present, No guarding/rigidity Extremities/Musculoskeletal:normal inspection, no edema, Right knee wound in dressing Neurologic/Psych:AAOX3, grossly no focal neurological deficits Skin: normal color, warm Results & Data Results & Data Vital Signs (Past 12 Hours) Vital Signs Pulse Pulse Resp BP BP Pulse Ox Pulse Ox 06/21/24 11:26 71 16 120/75 98 06/21/24 07:36 71 06/21/24 07:13 101 H 16 100/76 100 06/21/24 04:36 67 17 114/74 100 06/21/24 03:06 99 06/21/24 02:48 73 21 100 06/21/24 02:34 70 20 99/65 L 99 O2 Del Method O2 Del Method 06/21/24 11:26 Room Air 06/21/24 07:36 06/21/24 07:13 BiPAP 06/21/24 04:36 06/21/24 03:06 Room Air 06/21/24 02:48 06/21/24 02:34 Room Air Laboratory Results Short CBC 06/20/24 06/20/24 06/21/24 Range/Units 16:55 21:45 04:00 WBC 8.64 8.51 (4.8-10.8) K/ul Hgb 12.3 L 11.6 L 10.4 L (14.0-18.0) g/dl Hct 36.7 L 35.1 L 30.6 L (42.0-52.0) % Plt Count 375 272 (130-400) K/uL 06/21/24 Range/Units 10:09 WBC (4.8-10.8) K/ul Hgb 10.8 L (14.0-18.0) g/dl Hct 33.2 L (42.0-52.0) % Plt Count (130-400) K/uL BMP 06/20/24 06/21/24 16:55 04:00 Sodium 138 138 Potassium 3.6 4.1 Chloride 105 108 H Carbon Dioxide 23 25 BUN 22 18 Creatinine 0.90 0.89 Glucose 115 H 105 H Calcium 9.0 8.6 Cardiac Enzymes 06/20/24 Range/Units 16:55 Total Creatine Kinase 77 (30-223) U/L Liver Function 06/20/24 Range/Units 16:55 Total Bilirubin 0.8 (0.2-1.0) mg/dl AST 16 (13-39) U/L ALT 16 (7-52) U/L Alkaline Phosphatase 78 (34-104) U/L Albumin 4.2 (3.4-5.0) gm/dl Urine 06/20/24 Range/Units 20:44 Urine Color Yellow Urine Appearance Clear (Clear) Urine pH 5.0 (4.5-7.5) Ur Specific [place] 1.041 H (1.000-1.030) Urine Protein Negative (Negative) Urine Glucose (UA) Negative (Negative)
--- NOTE | 2024-06-21 13:52 | Discharge Summary ---
Date of Service June 21, 2024 Admission HPI Per Admitting Provider History obtained from patient, family, and records. Medical history significant for CAD status post recent stent (05/2024, [facility], [place], [place]), transient heart block as per patient, hypertension, hyperlipidemia, recent diagnosis DM2 insulin requiring, gout. Patient is a resident of [place], [place] who is in town for the weekend football game. Recent confinement [place], [place] last month for NSTEMI. Patient presented with food poisoning symptoms after leaving [facility] to return home to [facility]. Had to stop at [facility] in [place], [place] due to illness. Abnormal heart enzyme, heart block found during admission although patient never had chest pain/SOB symptoms. Subsequent PCI and stent placement. Patient also newly diagnosed to be diabetic during confinement. Hemoglobin A1c was around 15 as per patient. Patient had 2 recurrent syncopal events at the tailgate today. Remembers feeling lightheaded prior to the events. Denies headache, chest pain, SOB, abdominal pain, black/bloody stools, hematuria. No witnessed seizures or incontinence. Denies previous episodes at home. Bleeding abrasion on right knee from fall. No unusual knee pain complaints. Lowest SBP of 90s documented at the ER. Medical History as above Surgical History : Knee surgery Family History : Prostate cancer Personal/Social history :non-smoker, occasional EtOH intake, healthcare insurance sales agent Admission Exam Per Admitting Provider GENERAL: Comfortable, obese, slightly anxious, pleasant, no respiratory distress SKIN: Normal color, warm HEENT: Carnation palpebral conjunctivae, no ptosis, dry buccal mucosa NECK : Supple, no tenderness CHEST : CTA, no tenderness HEART : RRR, no obvious murmurs ABDOMEN: Some distention, nontender RECTAL : Refused EXTREMITIES : Dressing over right knee, no LE swelling/tenderness NEUROLOGIC : Coherent, no facial asymmetry, no other gross focality Principal Diagnosis Syncope Hypotension/Dehydration Right knee abrasion/wound Esophagitis Abnormal CT abdomen /pelvis Alcohol use Discharge Data Allergies Allergy/AdvReac Type Severity Reaction Status Date / Time No Known Allergies Allergy Verified 06/21/24 00:39 Consultations 06/20/24 20:03 ED Decision to Admit Stat Procedures Performed Laboratory Results WBC 8.51 K/ul (4.8-10.8) 06/21/24 04:00 RBC 3.35 M/uL (4.70-6.10) L 06/21/24 04:00 Hgb 10.8 g/dl (14.0-18.0) L 06/21/24 10:09 Hct 33.2 % (42.0-52.0) L 06/21/24 10:09 MCV 91.3 fL (80.0-100.0) 06/21/24 04:00 MCH 31.0 pg (25.0-34.0) 06/21/24 04:00 MCHC 34.0 g/dL (32.0-36.0) 06/21/24 04:00 RDW Std Deviation 41.6 fL (36.4-46.3) 06/21/24 04:00 RDW Coeff of Jodie 12.6 % (11.5-14.5) 06/21/24 04:00 Plt Count 272 K/uL (130-400) 06/21/24 04:00 MPV 9.3 fL (9.4-12.4) L 06/21/24 04:00 Immature Gran % (Auto) 0.4 % 06/21/24 04:00 Neut % (Auto) 67.9 % 06/21/24 04:00 Lymph % (Auto) 23.9 % 06/21/24 04:00 Garfield % (Auto) 6.3 % 06/21/24 04:00 Eos % (Auto) 1.3 % 06/21/24 04:00 Baso % (Auto) 0.2 % 06/21/24 04:00 Reticulocyte % (Auto) 3.53 % (0.50-2.00) H 06/20/24 21:45 Neut # (Auto) 5.78 K/uL (1.40-6.50) 06/21/24 04:00 Lymph # (Auto) 2.03 K/uL (1.20-3.40) 06/21/24 04:00 Garfield # (Auto) 0.54 K/uL (0.11-0.59) 06/21/24 04:00 Eos # (Auto) 0.11 K/uL (0.00-0.50) 06/21/24 04:00 Baso # (Auto) 0.02 K/uL (0.00-0.20) 06/21/24 04:00 Reticulocyte # 0.140 10^6/uL (0.020-0.100) H 06/20/24 21:45 Immature Gran # (Auto) 0.03 K/uL (0.01-0.20) 06/21/24 04:00 PT 10.9 Seconds (9.0-12.0) 06/20/24 16:55 INR 1.0 (0.9-1.1) 06/20/24 16:55 Sodium 138 mmol/L (136-145) 06/21/24 04:00 Potassium 4.1 mmol/L (3.5-5.1) 06/21/24 04:00 Chloride 108 mmol/L (98-107) H 06/21/24 04:00 Carbon Dioxide 25 mmol/L (21-32) 06/21/24 04:00 Anion Gap 5 (3-11) 06/21/24 04:00 BUN 18 mg/dl (6-23) 06/21/24 04:00 Creatinine 0.89 mg/dl (0.6-1.4) 06/21/24 04:00 Est Cr Clr Drug Dosing 113.8 ml/min 06/21/24 04:00 eGFR 100.58 06/21/24 04:00 BUN/Creatinine Ratio 20.2 (10-20) H 06/21/24 04:00 Glucose 105 mg/dl (70-99(Fasting)) H 06/21/24 04:00 POC Glucose 92 mg/dl (70-99) 06/21/24 09:22 Estimat Average Glucose 206 mg/dl 06/20/24 21:45 Hemoglobin A1c 8.8 % (4.5-5.6) H 06/20/24 21:45 Lactate 0.8 mmol/L (0.4-2.0) 06/20/24 21:45 Calcium 8.6 mg/dl (8.6-10.3) 06/21/24 04:00 Magnesium 1.9 mg/dl (1.7-2.4) 06/20/24 16:55 Iron 53 mcg/dl (35-175) 06/20/24 18:41 Transferrin 236 mg/dl (200-360) 06/20/24 18:41 Ferritin 165.6 ng/ml (8-388) 06/20/24 18:41 Total Bilirubin 0.8 mg/dl (0.2-1.0) 06/20/24 16:55 AST 16 U/L (13-39) 06/20/24 16:55 ALT 16 U/L (7-52) 06/20/24 16:55 Alkaline Phosphatase 78 U/L (34-104) 06/20/24 16:55 Total Creatine Kinase 77 U/L (30-223) 06/20/24 16:55 Troponin I High Sens 98.4 pg/ml (0-20) H* 06/21/24 10:09 B-Natriuretic Peptide 118 pg/ml (0-100) H 06/20/24 18:35 Total Protein 6.9 gm/dl (6.0-8.3) 06/20/24 16:55 Albumin 4.2 gm/dl (3.4-5.0) 06/20/24 16:55 Globulin 2.7 gm/dl (2.5-4.0) 06/20/24 16:55 Albumin/Globulin Ratio 1.6 (0.9-2) 06/20/24 16:55 Lipase 22 U/L (11-82) 06/20/24 16:55 Vitamin B12 292 pg/ml (180-914) 06/20/24 16:55 Folate 18.15 ng/ml (>5.38) 06/20/24 16:55 TSH 3.323 uIu/ml (0.300-4.500) 06/20/24 16:55 Urine Color Yellow 06/20/24 20:44 Urine Appearance Clear (Clear) 06/20/24 20:44 Urine pH 5.0 (4.5-7.5) 06/20/24 20:44 Ur Specific [place] 1.041 (1.000-1.030) H 06/20/24 20:44 Urine Protein Negative (Negative) 06/20/24 20:44 Urine Glucose (UA) Negative (Negative) 06/20/24 20:44 Urine Ketones Negative (Negative) 06/20/24 20:44 Urine Blood Negative (Negative) 06/20/24 20:44 Urine Nitrite Negative (Negative) 06/20/24 20:44 Urine Bilirubin Negative (Negative) 06/20/24 20:44 Urine Urobilinogen Negative (Negative) 06/20/24 20:44 Ur Leukocyte Esterase Negative (Negative) 06/20/24 20:44 Ethyl Alcohol mg/dL 50.7 mg/dl (<10.0) H 06/20/24 16:55 Blood Type O Positive 06/20/24 21:45 Antibody Screen NEGATIVE 06/20/24 21:[address] 06/20/24 16:47 CT OF THE HEAD WITHOUT CONTRAST CLINICAL HISTORY: Syncope. COMPARISON STUDY: No previous studies for comparison. TECHNIQUE: Helical axial images of the head were obtained without IV contrast. Automated exposure control was utilized for the study. A dose lowering technique was utilized adhering to the principles of ALARA. FINDINGS: No acute intracranial hemorrhage, midline shift or mass effect is present. The ventricular system is unremarkable. The basal cisterns are patent. No extra-axial collections are present. There are no findings to suggest acute dural sinus thrombosis or acute territorial infarct. No significant calvarial abnormalities are present. Visualized portions of the sinuses and mastoid air cells are clear. IMPRESSION: 1. No acute intracranial findings. 2. No calvarial fractures. ACT 112: Negative or not required by law. Electronically signed by: Chaz Ragland M.D. 06/20/2024 5:37 PM Abdomen/Pelvis CT 06/20/24 17:20 CT OF THE ABDOMEN AND PELVIS WITH CONTRAST CLINICAL HISTORY: Syncopal episode. Vomiting. COMPARISON STUDY: None. TECHNIQUE: Following IV administration of 93 mL of Optiray, axial images of the abdomen and pelvis were obtained from the lung bases to the proximal femurs. Images were reviewed in the axial, sagittal, and coronal planes. IV contrast was administered without complication. Automated exposure control was utilized for the study. A dose lowering technique was utilized adhering to the principles of ALARA. CT DOSE: 3702.26 mGy.cm FINDINGS: No pneumatosis, free air or portal venous gas is present. There is moderate circumferential wall thickening of the distal esophagus. The stomach is moderately distended and fluid-filled. Hypodense hepatic lesions represent cysts. There is no biliary or pancreatic ductal dilatation. Subtle hypodensity surrounding the pancreas is noted. This is also adjacent to the proximal duodenum and the superior mesenteric vein. The vessels are patent. No peripancreatic fluid collection is present. Superior mesenteric artery is unremarkable. Water attenuation bilateral renal lesions represent cysts. There is no hydronephrosis. There is no evidence for a bowel obstruction. The appendix is normal. There is mild wall thickening with subtle stranding/interloop fluid adjacent to the majority of the small bowel. There is trace ascites within the pelvis. No colonic wall thickening is present. There is no lymphadenopathy. Bladder wall thickening is accentuated by underdistention. No acute fractures within the lumbar spine, pelvis or hips are identified. IMPRESSION: 1. Normal appendix. No evidence for a bowel obstruction. 2. Fluid-filled distended stomach. This may simply represent gastroenteritis. Ho wever, gastric outlet obstruction/duodenal obstruction could have a similar imaging appearance. If persistent symptoms, GI consultation is recommended. 3. Subtle peripancreatic stranding/soft tissue which extends along the proximal duodenum and superior mesenteric vein. Although the appearance is not typical, acute pancreatitis cannot be excluded. Autoimmune pancreatitis is also within the differential. A follow-up CT in one month to ensure resolution and exclude the much less likely possibility of a neoplastic etiology is recommended. 4. Diffuse small bowel wall thickening with minimal adjacent stranding and fluid. This suggests a nonspecific enteritis which should be assessed on follow- up CT. 5. Circumferential distal esophageal wall thickening which may reflect esophagitis. ACT 112: Positive. There are findings on this exam that require communication between the performing entity and the patient following Patient Test Result Information Act ([place] Act 112) guidelines. Electronically signed by: Chaz Ragland M.D. 06/20/2024 6:[address] 06/20/24 17:20 CT OF THE CHEST WITH IV CONTRAST CLINICAL HISTORY: Syncope. COMPARISON STUDY: No previous studies for comparison. TECHNIQUE: Following IV administration of 93 mL of Optiray, helical axial images of the chest were obtained. Sagittal and coronal reconstructions were viewed as well as maximal intensity projections on an independent 3-D workstation. Automated exposure control was utilized for the study. A dose lowering technique was utilized adhering to the principles of ALARA. FINDINGS: No enlarged axillary, mediastinal or hilar lymph nodes are present. Size of the heart is at the upper limits of normal. There is moderate circumferential wall thickening of the mid to distal esophagus. There may be trace mediastinal fluid. There is no pneumomediastinum. No pneumothorax or pleural effusion is present. Multiple small calcified pulmonary nodules are benign. There are no suspicious pulmonary nodules. No consolidation is identified to suggest pneumonia. The stomach is distended and fluid-filled. There is a gallstone within the gallbladder. These findings are better depicted on the CT of the abdomen and pelvis which will be reported separately. No fractures within the bony thorax are identified. IMPRESSION: 1. No acute traumatic findings within the chest. 2. Moderate circumferential wall thickening of the mid to distal esophagus with trace mediastinal fluid. This is nonspecific but favors esophagitis. Distended, fluid-filled stomach better depicted on the CT of the abdomen and pelvis which will be reported separately. ACT 112: Negative or not required by law. Electronically signed by: Chaz Ragland M.D. 06/20/2024 5:46 PM Ordered Studies 06/20/24 16:47 CT head/brain wo con Stat 06/20/24 17:20 CT Abd and Pelvis [CT abd pelvis IV con only] Stat CT chest diagnostic w con Stat Hospital Course (1) Syncope: Syncope Likely secondary to hypotension/orthostasis Mild troponin elevation likely demand ischemia secondary to above Patient admits to have not eaten due to the game, took his diuretics and consumed alcohol likely causing dehydration --CT Head: No acute intracranial findings. No calvarial fractures. --ECHO: EF 50 to 60%. Known dilated cardiac chambers. No significant valvular pathology. Continue to hold losartan as blood pressure relatively low Patient prefers to be discharged home today Advised to get ZIO monitor as outpatient and avoid alcohol use and keep himself hydrated Right knee abrasion/wound Fall precautions Continue local wound care Pain is controlled Esophagitis --Chest CT:Moderate circumferential wall thickening of the mid to distal esophagus with trace mediastinal fluid. This is nonspecific but favors esophagitis. Distended, fluid-filled stomach better depicted on the CT of the abdomen and pelvis which will be reported separately. Avoid NSAIDs Started on Protonix Advised to follow-up with GI as outpatient for possible endoscopy Abnormal CT abdomen /pelvis --CT ABD:Normal appendix. No evidence for a bowel obstruction. Fluid-filled distended stomach. This may simply represent gastroenteritis. However, gastric outlet obstruction/duodenal obstruction could have a similar imaging appearance. If persistent symptoms, GI consultation is recommended. Subtle peripancreatic stranding/soft tissue which extends along the proximal duodenum and superior mesenteric vein. Although the appearance is not typical, acute pancreatitis cannot be excluded. Autoimmune pancreatitis is also within the differential. A follow-up CT in one month to ensure resolution and exclude the much less likely possibility of a neoplastic etiology is recommended. Diffuse small bowel wall thickening with minimal adjacent stranding and fluid. This suggests a nonspeci fic enteritis which should be assessed on follow-up CT. Circumferential distal esophageal wall thickening which may reflect esophagitis. -- Patient admits to having a " food poisoning" infection recently -- Findings likely related to recent infection --Patient denies any nausea, vomiting, abdominal pain. No issues with bowel movements per patient Advised to follow-up with gastroenterology as outpatient for possible EGD and colonoscopy Alcohol use No signs of withdrawal Continue thiamine CAD S/P stent Continue home medications Resume losartan when blood pressure more stable DM II Uncontrolled, recent diagnosis HbA1c 8.8 Continue insulin while hospitalized Monitor BGs DVT Px: SCDs for now Code Status Full code Total Time Total Time Spent Total Time Spent (In Minutes): 44 minutes Discharge Plan Discharge Items Patient Disposition: Home - Self-Care Reason For Visit: SYNCOPE; PRIVATE RM PER REQ Discharge Diagnosis: Syncope Hypotension/Dehydration Right knee abrasion/wound Esophagitis Abnormal CT abdomen /pelvis Alcohol use Activity: Per Instructions section Exercise/Sports: Wait until after follow-up appointment Non-emergency contact: Primary Care Provider, Insole Cementer and Pouncing Machine Operator Call non-emergency contact if: you have any medication questions, your symptoms worsen, your pain is concerning for you and you have a fever Follow-up/Referrals: PCP,NO [Primary Care Provider] - Diet: Carb Consistent or DM2 and Heart Healthy Addtl Attending Provider Instructions: Follow-up with your primary care physician in 1 week Follow-up with your bioinformaticist as soon as possible. Follow-up with your toggle press folder and feeder for possible EGD and colonoscopy as outpatient -- Avoid drinking alcohol as advised. Keep yourself hydrated. --Hold taking losartan, furosemide for 2 days. Can resume your medications once your blood pressure is more stable. Discuss with your primary care physician for further instructions. --You may need ZIO monitor arranged by your primary care physician/bioinformaticist to rule out any arrhythmias --Recommend to avoid driving until follow-up with your bioinformaticist for further instructions. --Start taking Protonix 40 mg daily to help with esophagitis. Do not take group of medications belonging to NSAIDs group -as you are already on aspirin, Brilinta and your imaging studies suggestive of esophagitis. List Of these medications includes but not limited to: Diclofenac Ibuprofen, Motrin, Advil Toradol,ketorolac Naproxen, Aleve, Naprosyn You can take Tylenol as needed for pain or fever When buying [id number] pain medications please consult with pharmacy if you are not sure regarding ingredients, as a lot of the pain medications have combination of NSAIDs and Tylenol. Seek immediate medical attention if your symptoms reoccur or worsen Please take all medications as instructed on discharge list below. Please call if you have any questions or problems. You can reach a [facility] hospitalist on duty at [facility] 24 hours a day by calling [phone] Pending Studies at Discharge: No Stand-Alone Forms: My [facility], Smoking Cessation Medications and DC Order Prescriptions: New pantoprazole 40 mg Tablet,Delayed Release (Dr/Ec) 40 mg PO QAM Qty: 30 0RF Continued metformin 500 mg tablet 500 mg PO BID aspirin 81 mg tablet,delayed release (DR/EC) 81 mg PO DAILY losartan 25 mg tablet 25 mg PO DAILY furosemide 20 mg tablet 20 mg PO DAILY metoprolol succinate 25 mg tablet extended release 24 hr 25 mg PO DAILY albuterol sulfate 90 mcg/actuation HFA aerosol inhaler 2 inh INHALATION Q4H PRN (Reason: SOB) insulin aspart U-100 [Novolog FlexPen U-100 Insulin] 100 unit/mL (3 mL) insulin pen 0 sliding scale dose SUBCUT DIRECTED Rx Instructions: INJECT 1-8 UNITS 3 TIMES A DAY BEFORE MEALS. INJECT EXTRA DOSE BASED ON RESULTS PER SCALE PROVIDED. rosuvastatin 40 mg tablet 40 mg DAILY insulin glargine [Lantus Solostar U-100 Insulin] 100 unit/mL (3 mL) insulin pen 45 unit SUBCUT DAILY febuxostat 80 mg tablet 80 mg PO DAILY Brilinta 90 mg tablet 90 mg PO Q12H Discharge Orders: Discharge Order (Routine); Ordered 06/21/24 Ordered By: Samuel Baeza/Other Patient Handouts: Managing Type 2 Diabetes Admission Data Admit Date/Time: 06/20/24 23:26 Attending Provider: Samuel Marte Admit Provider: Farooq Bryant Primary Care Provider: PCP,NO Other Providers: Farooq Bryant
--- NOTE | 2024-06-21 14:18 | Electrocardiogram Report ---
Test Reason : Blood Pressure : */* mmHG Vent. Rate : 92 BPM Atrial Rate : 92 BPM P-R Int : 188 ms QRS Dur : 100 ms QT Int : 390 ms P-R-T Axes : 42 -29 47 degrees QTcB Int : 482 ms Normal sinus rhythm Incomplete right bundle branch block Cannot rule out Anterior infarct , age undetermined ; may be lead placement Abnormal ECG No previous ECGs available Confirmed by Dayne Montesinos ([id number]) on 06/21/2024 2:17:37 PM Referred By: Confirmed By: Dayne Montesinos
[2024-06-21] MEDS ORDERED: ROSUVASTATIN CALCIUM 20 MG TAB PO SCH (21:00)
== END 2024-06-21 14:13 | disposition home or self-care (01) ==
LOC: ED 16:40 → EDINP 16:40